=== PATIENT | female | born 1970 | race Asian ===

== ENCOUNTER 2021-08-01 06:54 | Outpatient (REF) | payer OTHER, SELFPAY ==
--- NOTE | ~2021-08-01 | XR_ITS ---
EXAMINATION: XR CHEST CLINICAL INFORMATION: Dyspnea COMPARISON: None TECHNIQUE: 2 views of the chest were obtained. FINDINGS: No focal consolidation, pleural effusion or pneumothorax. 1.5 cm symmetric rounded radiopacities project over the lower lung lara and breasts consistent with nipple shadows. Heart size is normal. No acute osseous abnormality. XR/XR chest 2V IMPRESSION: No acute pulmonary process.
[2021-08-01 07:47] LABS: MANUAL DIFF FLAG NO
[2021-08-01 07:54] LABS: Basophils Percent Auto 0.7 % (0-2); Eosinophils Absolute Auto 0.1 X10*3/uL (0.0-0.4); Eosinophils Percent Auto 1.5 % (0-4); Hematocrit 34.9 % (37-47); Hemoglobin 10.4 g/dl (12.0-16.0); Imm Gran Abs Auto 0.01 X10*3/uL (0.00-0.03); Imm Gran Pct Auto 0.2 % (0.0-0.4); Lymphocytes Absolute Auto 1.5 X10*3/uL (1.2-4.9); Lymphocytes Percent Auto 31.9 % (20-40); Mean Corpuscular HGB Conc 29.8 g/dl (31.0-35.0); Mean Corpuscular Hemoglobin 23.2 pg (27.0-33.0); Mean Corpuscular Volume 77.7 fL (80-98); Mean Platelet Volume 10.2 fL (9.4-12.3); Monocytes Absolute Auto 0.5 X10*3/uL (0.1-1.2); Monocytes Percent Auto 9.9 % (2-11); Neutrophils Absolute Auto 2.5 X10*3/uL (2.0-8.3); Neutrophils Percent Auto 55.8 % (45-73); Platelet Count 316 X10*3/uL (160-400); Red Blood Count 4.49 X10*6/uL (4.20-5.50); Red Cell Distribution Width 15.1 % (11.0-16.0); White Blood Count 4.6 X10*3/uL (4.8-10.8)
[2021-08-01 08:18] LABS: Alanine Aminotransferase 28 U/L (0-31); Albumin Level 4.5 g/dL (3.5-5.0); Alkaline Phosphatase 80 U/L (39-117); Anion Gap 11 (12-20); Aspartate Amino Transferase 21 U/L (5-31); Bilirubin Total 0.5 mg/dL (0.0-1.0); Blood Urea Nitrogen 11 mg/dL (9-16); Calcium 9.5 mg/dL (8.4-10.2); Carbon Dioxide 27 mmol/L (22-29); Chloride 106 mmol/L (96-108); Cholesterol 191 mg/dL; Estimated Glomerular Filt Rate > 60; Glucose Fasting 99 mg/dL (60-99); HDL Cholesterol 58 mg/dL; LDL Cholesterol Calculated 113 mg/dl; Sodium 140 mmol/L (135-145); Total Protein 7.3 g/dL (6.5-8.0); Triglycerides 104 mg/dL
[2021-08-01 08:41] LABS: TSH reflex Free T4 3.59 uIU/mL (0.32-4.0); Vitamin D 25-OH Total 22.2 ng/mL (>30)
[2021-08-01 08:52] LABS: Appearance Urine CLEAR; Color Urine YELLOW; Glucose Urine UA NEG (NEG); Leukocyte Esterase Urine NEG (NEG); Nitrite Urine NEG (NEG); PH 5.5 (5.0-8.0); Specific Gravity - Urine >= 1.030 (1.005-1.025); Urine Blood NEG (NEG); Urine Ketones NEG (NEG); Urine Protein TRACE MG/DL (NEG-TRACE)
== END 2021-08-01 06:55 | disposition home or self-care (01) ==
LOC: HO.XRAY 06:54
PROVIDERS: PCP Internal Medicine; Visit Provider Internal Medicine
DX: Z00.00 Encounter for general adult medical examination without abnormal findings (principal); R06.00 Dyspnea, unspecified; E55.9 Vitamin D deficiency, unspecified
CPT/HCPCS: 36415; 71046; 80053; 80061; 81003; 82306; 84443; 85025

== ENCOUNTER → 2021-09-08 12:44 | Outpatient (BNVA) | payer OTHER, SELFPAY | PROVIDERS: Visit Provider Advanced Practice Midwife ==

== ENCOUNTER 2021-10-16 15:15 | Outpatient (REF) | payer OTHER, SELFPAY ==
--- NOTE | ~2021-10-16 | MM_ITS ---
EXAMINATION: MM SCREENING DIGITAL BREAST TOMOSYNTHESIS, BILATERAL CLINICAL INFORMATION: Screening. Asymptomatic. The lifetime risk of breast cancer based on the Tyrer-Cuzick Model is 5.8%. COMPARISON: Mammography: June 06, 2016 TECHNIQUE: Digital breast tomosynthesis is performed in both the craniocaudal and mediolateral oblique views along with computer-aided detection (CAD). Synthesized 2D images are generated from the tomosynthesis. FINDINGS: The breasts are extremely dense, which lowers the sensitivity of mammography (ACR BI-RADS breast composition Category d). There are no significant masses, abnormal calcifications, or other abnormalities. There are some stable or smaller circumscribed densities present. MM/MM tomosynthesis screening BI IMPRESSION: There are no significant changes from prior study. ASSESSMENT: BI-RADS 1: Negative RECOMMENDATION: Routine annual mammography screening. This patient's information was entered into a reminder system with a target due date for their next mammogram.
== END 2021-10-16 15:16 | disposition home or self-care (01) ==
LOC: HO.MAMMO 15:15
PROVIDERS: Visit Provider Internal Medicine
DX: Z12.31 Encounter for screening mammogram for malignant neoplasm of breast (principal)
CPT/HCPCS: 77063; 77067

== ENCOUNTER 2022-08-01 09:33 | Outpatient (REF) | payer OTHER, SELFPAY ==
--- NOTE | ~2022-08-01 | XR_ITS ---
EXAMINATION: XR HAND, LEFT XR HAND, RIGHT CLINICAL INFORMATION: Pain COMPARISON: None TECHNIQUE: 3 views of each hand FINDINGS: Right hand: No fracture or dislocation. Alignment is maintained. Joint spaces are maintained. No osseous erosion. The soft tissues are unremarkable. Left hand: No fracture or dislocation. Alignment is maintained. Joint spaces are maintained. No osseous erosion. The soft tissues are unremarkable. XR/XR hand RT min 3V IMPRESSION: Normal appearance of both hands.
--- NOTE | ~2022-08-01 | XR_ITS ---
EXAMINATION: XR HAND, LEFT XR HAND, RIGHT CLINICAL INFORMATION: Pain COMPARISON: None TECHNIQUE: 3 views of each hand FINDINGS: Right hand: No fracture or dislocation. Alignment is maintained. Joint spaces are maintained. No osseous erosion. The soft tissues are unremarkable. Left hand: No fracture or dislocation. Alignment is maintained. Joint spaces are maintained. No osseous erosion. The soft tissues are unremarkable. XR/XR hand LT min 3V IMPRESSION: Normal appearance of both hands.
[2022-08-01 09:45] LABS: MANUAL DIFF FLAG NO
[2022-08-01 10:18] LABS: Basophils Percent Auto 0.6 % (0-2); Eosinophils Absolute Auto 0.1 X10*3/uL (0.0-0.4); Eosinophils Percent Auto 1.3 % (0-4); Hematocrit 44.3 % (37.0-47.0); Hemoglobin 14.3 g/dl (12.0-16.0); Imm Gran Abs Auto 0.01 X10*3/uL (0.00-0.03); Imm Gran Pct Auto 0.2 % (0.0-0.4); Lymphocytes Absolute Auto 1.5 X10*3/uL (1.2-4.9); Mean Corpuscular HGB Conc 32.3 g/dl (31.0-35.0); Mean Corpuscular Hemoglobin 28.5 pg (27.0-33.0); Mean Corpuscular Volume 88.4 fL (80.0-98.0); Mean Platelet Volume 9.6 fL (9.4-12.3); Monocytes Absolute Auto 0.4 X10*3/uL (0.1-1.2); Monocytes Percent Auto 8.4 % (2-11); Neutrophils Absolute Auto 2.8 x10*3/uL (2.0-8.3); Neutrophils Percent Auto 58.5 % (45-73); Platelet Count 247 X10*3/uL (160-400); Red Blood Count 5.01 X10*6/uL (4.20-5.50); Red Cell Distribution Width 12.5 % (11.0-16.0); White Blood Count 4.7 X10*3/uL (4.8-10.8)
[2022-08-01 10:38] LABS: Appearance Urine Clear; Color Urine Yellow; Glucose Urine UA Negative (Negative); Leukocyte Esterase Urine Negative (Negative); Nitrite Urine Negative (Negative); Urine Blood Negative (Negative); Urine Ketones Negative (Negative); Urine Protein Negative (Neg-Trace)
[2022-08-01 11:01] LABS: Alanine Aminotransferase 44 U/L (0-31); Albumin Level 4.5 g/dL (3.5-5.0); Alkaline Phosphatase 102 U/L (39-117); Anion Gap 16 (12-20); Aspartate Amino Transferase 29 U/L (5-31); Bilirubin Total 0.8 mg/dL (0.0-1.0); Blood Urea Nitrogen 11 mg/dL (9-16); Calcium 9.5 mg/dL (8.4-10.2); Carbon Dioxide 25 mmol/L (22-29); Chloride 104 mmol/L (96-108); Cholesterol 196 mg/dL; Estimated Glomerular Filt Rate > 60; Glucose Fasting 95 mg/dL (60-99); HDL Cholesterol 50 mg/dL; Iron 119 mcg/dL (30-160); LDL Cholesterol Calculated 122 mg/dl; Percent Iron Saturation 34 % (15-50); Potassium 4.2 mmol/L (3.3-5.1); Sodium 141 mmol/L (135-145); Total Iron Binding Capacity 354 mcg/dL (228-428); Total Protein 7.2 g/dL (6.5-8.0); Triglycerides 120 mg/dL; Unsaturated Iron Binding 235 ug/dL
[2022-08-01 11:09] LABS: TSH reflex Free T4 1.81 uIU/mL (0.32-4.0); Vitamin D 25-OH Total 27.7 ng/mL (>30)
== END 2022-08-01 09:34 | disposition home or self-care (01) ==
LOC: HO.LAB 09:33
PROVIDERS: PCP Internal Medicine; Visit Provider Internal Medicine
DX: Z00.00 Encounter for general adult medical examination without abnormal findings (principal); D50.9 Iron deficiency anemia, unspecified; R30.0 Dysuria; E55.9 Vitamin D deficiency, unspecified; E78.00 Pure hypercholesterolemia, unspecified; M79.641 Pain in right hand; M79.642 Pain in left hand
CPT/HCPCS: 36415; 73130; 80053; 80061; 81003; 82306; 83540; 84443; 85025

== ENCOUNTER 2022-09-10 13:56 | Outpatient (REF) | payer OTHER, SELFPAY ==
[2022-09-13 07:31] LABS: HPV mRNA E6/E7 rflx Not Detected (Not Detected)
== END 2022-09-10 13:57 | disposition home or self-care (01) ==
LOC: HO.LNP 13:56
PROVIDERS: Visit Provider Advanced Practice Midwife
DX: Z01.419 Encounter for gynecological examination (general) (routine) without abnormal findings (principal); Z11.51 Encounter for screening for human papillomavirus (HPV)
CPT/HCPCS: 87624; 88142

== ENCOUNTER 2022-10-22 15:05 | Outpatient (REF) | payer OTHER, SELFPAY ==
--- NOTE | ~2022-10-22 | MM_ITS ---
EXAMINATION: MM SCREENING DIGITAL BREAST TOMOSYNTHESIS, BILATERAL CLINICAL INFORMATION: Screening. Asymptomatic. Prior ultrasound-guided left breast biopsy 1:00 position, 2014 (fibroadenoma, [facility]). The lifetime risk of breast cancer based on the Tyrer-Cuzick Model is 8%. COMPARISON: Mammography: 10/16/2021; outside imaging [facility]: Mammography 12/12/2016, 06/06/2016, 04/12/2015; left breast ultrasound 06/22/2016, 12/12/2016. TECHNIQUE: Digital breast tomosynthesis is performed in both the craniocaudal and mediolateral oblique views along with computer-aided detection (CAD). Synthesized 2D images are generated from the tomosynthesis. FINDINGS: The breasts are extremely dense, which lowers the sensitivity of mammography (ACR BI-RADS breast composition Category d). Left breast appears similar to prior study. Mass noted upper outer quadrant 2015 is not clearly identified in there is no biopsy clip marker. No architectural abnormality. Neither breast shows abnormal calcifications. The bilateral axilla and skin contours are unremarkable. Right MLO tomography shows some converging lines upper quadrant mid jovanny stack, 4.5 cm from nipple. No CC correlate. Patient will be recalled to further characterize and exclude architectural changes in this area. MM/MM tomosynthesis screening BI IMPRESSION: Right: -Question converging lines mid upper right breast on MLO tomography. No CC correlate. Left: -No mammographic evidence of malignancy. ASSESSMENT: BI-RADS 0: Incomplete - Need Additional Imaging Evaluation RECOMMENDATION: 1. Additional views of the right breast (spot MLO, spot ML). 2. Targeted ultrasound if warranted after review of the additional views. 3. Radiology department staff will contact the patient for additional imaging. This patient's information was entered into a reminder system with a target due date for their next mammogram.
== END 2022-10-22 15:06 | disposition home or self-care (01) ==
LOC: HO.MAMMO 15:05
PROVIDERS: PCP Internal Medicine; Visit Provider Advanced Practice Midwife
DX: Z12.31 Encounter for screening mammogram for malignant neoplasm of breast (principal)
CPT/HCPCS: 77063; 77067

== ENCOUNTER 2022-10-30 08:18 | Outpatient (REF) | payer OTHER, SELFPAY ==
--- NOTE | ~2022-10-30 | US_ITS ---
EXAMINATION: MM DIAGNOSTIC DIGITAL BREAST TOMOSYNTHESIS, RIGHT TARGETED RIGHT BREAST ULTRASOUND CLINICAL INFORMATION: Right breast converging lines. COMPARISON: Mammography: 10/22/2022 and studies dating back to 01/23/2011. TECHNIQUE: Digital breast tomosynthesis is performed. 2D images are generated from the tomosynthesis. The following views are obtained: 90-degree mediolateral and mediolateral oblique spot compression views. Targeted right breast ultrasound. FINDINGS: The breasts are extremely dense, which lowers the sensitivity of mammography (ACR BI-RADS breast composition Category d). Additional views demonstrate a question appearance of asymmetric density approximately 4 cm from the nipple. This lies in the superior breast. This does not have a dense central aspect but appears to have some radiating lines associated with it. Targeted right breast ultrasound demonstrate an approximately 5 x 3 mm hypoechoic structure with some increased through-sound transmission at the 12 o'clock position. No internal vascularity is present. The region is taller than it is wide. Ultrasound-guided core biopsy is recommended with correlation of clip site with mammographic finding. Results are discussed with the patient at time of visit. US/US breast RT limited IMPRESSION: Question faint region of asymmetric density in the very dense breast tissue superior right breast with what may be a corresponding ultrasound findings of a shadowing region on ultrasound. Recommend ultrasound-guided core biopsy. ASSESSMENT: BI-RADS 4: Suspicious. RECOMMENDATION: Ultrasound-guided core biopsy. 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
== END 2022-10-30 08:19 | disposition home or self-care (01) ==
LOC: HO.MAMMO 08:18
PROVIDERS: PCP Internal Medicine; Visit Provider Internal Medicine
DX: R92.2 Inconclusive mammogram (principal)
CPT/HCPCS: 76642; 77061; 77065

== ENCOUNTER 2022-11-01 08:52 | Outpatient (REF) | payer OTHER, SELFPAY ==
--- NOTE | ~2022-11-01 | MM_ITS ---
PROCEDURE: US GUIDED BREAST BIOPSY, RIGHT Post procedure 2 view right mammography. CLINICAL INFORMATION: Hypoechoic ill-defined region with distal sound shadowing 12:00 position 2 cm from nipple right breast. COMPARISON: October 30, 2022 and October 22, 2022 PROCEDURAL DETAILS: The details of the procedure, as well as the risks, benefits, and alternatives to the procedure were explained to the patient in detail and all of her questions were answered, after which written informed consent was obtained. Site and side were confirmed. Prior to the procedure, sonography revealed an ill-defined hypoechoic lesion with distal sound shadowing. A time-out was performed, the lesion intended for biopsy was targeted, and the skin of the right breast was then prepped and draped in the usual sterile fashion. Using sonographic guidance, sterile technique, and 1% lidocaine without epinephrine for local anesthesia, multiple automated core biopsies were obtained through the targeted area with a 14G spring loaded Achieve core biopsy device. There was real-time confirmation of appropriate needle passage. Sampling was documented. At the completion of tissue sampling, a single open coil metallic clip was deposited at the biopsy site. There was no evidence of immediate complication. SPECIMEN: An appropriate sample was obtained. DIGITAL POST-PROCEDURE MAMMOGRAPHY: Breast density: The tissue contains scattered areas of fibroglandular density. BI-RADS version 5, category B. There are no new mammographic findings demonstrated. The postprocedure 2-view direct digital mammogram reveals satisfactory positioning of the biopsy clip. The patient tolerated the procedure well and, after assuring adequate hemostasis, was discharged in good condition after reviewing postbiopsy breast care instructions. Final pathology results are pending. MM/MM tomosynthesis diagnostic RT IMPRESSION: 1. No immediate complication from ultrasound-guided percutaneous biopsy right breast. 2. Ultrasound was used to localize and guide marker clip placement. 3. The 2-view direct digital postprocedure mammogram reveals satisfactory positioning of the biopsy clip. 4. Final pathology results are pending. A separate report with final recommendations will be issued once these results are made available.
[2022-11-01] MEDS: Lidocaine HCl 1 % 20 ML VIAL 10 ML SUBCUT (10:48)
== END 2022-11-01 08:53 | disposition home or self-care (01) ==
LOC: HO.MAMMO 08:52
PROVIDERS: PCP Internal Medicine; Visit Provider Surgery
DX: R92.8 Other abnormal and inconclusive findings on diagnostic imaging of breast (principal)
CPT/HCPCS: 19083; 77061; 77065; 88305; 99202; A4648

== ENCOUNTER → 2022-11-09 09:00 | Outpatient (BNVA) | payer OTHER, SELFPAY | PROVIDERS: PCP Internal Medicine; Visit Provider Surgery | DX: R92.8 Other abnormal and inconclusive findings on diagnostic imaging of breast (principal) | CPT/HCPCS: 99212 ==

== ENCOUNTER 2023-04-12 08:57 | Outpatient (REF) | payer OTHER, SELFPAY ==
--- NOTE | ~2023-04-12 | MM_ITS ---
EXAMINATION: MM DIAGNOSTIC DIGITAL BREAST TOMOSYNTHESIS, RIGHT CLINICAL INFORMATION: Short interval follow-up ultrasound guided right breast biopsy 11/01/2022 performed for architectural changes (dense stromal fibrosis; negative for atypia or malignancy). TC score 8%. COMPARISON: Mammography: 11/01/2022, 10/30/2022, 10/22/2022, 10/17/2021 TECHNIQUE: Digital breast tomosynthesis is performed in both the craniocaudal and mediolateral oblique views along with computer-aided detection (CAD). Synthesized 2D images are generated from the tomosynthesis. FINDINGS: The breasts are extremely dense, which lowers the sensitivity of mammography (ACR BI-RADS breast composition Category d). Architectural changes 12:00 right breast are similar to prior exams. The biopsy clip marker is immediately adjacent to the epicenter. There is no interval mass or interval architectural abnormality or abnormal calcifications. The axilla and skin contours are unremarkable. Results are provided to the patient at time of visit by the technologist. MM/MM tomosynthesis diagnostic RT IMPRESSION: No significant changes from prior exam. ASSESSMENT: BI-RADS 3: Probably Benign RECOMMENDATIONS: -Diagnostic mammography at time of annual bilateral mammography, due in 6 months. -Given the extremely dense breast parenchymal pattern on mammography and right stromal fibrosis, suggest additional adjunct screening with breast MR. This patient's information was entered into a reminder system with a target due date for their next mammogram.
== END 2023-04-12 08:58 | disposition home or self-care (01) ==
LOC: HO.MAMMO 08:57
PROVIDERS: PCP Internal Medicine; Visit Provider Advanced Practice Midwife
DX: Z98.890 Other specified postprocedural states (principal)
CPT/HCPCS: 77061; 77065

== ENCOUNTER 2023-08-06 12:59 | Outpatient (AMB) | payer OTHER, SELFPAY ==
[2023-08-06 13:01] VITALS: BP 110/78; PULSE 82; O2SAT 96; BMI 22.2
--- NOTE | 2023-08-06 13:01 | A.OFFPC_ITS ---
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 Required: No Accompanied by: Self / Same As Patient Allergies No Known Allergies Allergy (Verified 08/06/23 13:23) Medication List - Last Reconciled 08/06/23 by John Lilly MD mometasone 0.1% 1 appl topical DAILY PRN Tobacco use date assessed: 08/06/23 Dental Screening Dental Screen Date: 08/06/23 Did you have a dental visit in the last 12 months?: No Did you have a dental problem in the last 6 months where you did not have access to dental care?: No Was dental information given to patient?: No HPI Annual Exam- NEEDS PHQ9 + THRIVE HPI Details Patient comes in today for her annual physical examination States that she feels okay She denies any headaches or dizziness Denies any chest pains, no SOB No nausea/vomiting, no abdominal pain No change in bowel habits noted Denies any acute urinary symptoms She had her screening colonoscopy done with Dr. Jamison back on 01/13/2019 - (+) hyperplastic polyps and she was recommended for repeat colonoscopy in 10 years (2028) Had her pap smear last done in September 2022 and she is scheduled for her next obstetrics gynecology physician exam on 09/16/2023 Had her mammogram last done in April 2023; is due for repeat and annual in 6 months [facility] Medical History Allergic rhinitis GERD without esophagitis Elevated liver enzymes Vitamin D deficiency Breast lump in upper outer quadrant Fibroadenoma Surgical History S/P breast biopsy, left (~05/12/15) H/O removal of cyst Family History Father No problems noted. Mother No problems noted. Social History Housing: House Alcohol intake: never Patient Tobacco Use Status: Never used Tobacco Second Hand Smoke Exposure: No service: No Current occupational status: employed Cognitive needs: No Hearing needs: No Vision needs: No Female Reproductive History Menstrual Age of Menarche: 15 Questionnaire PHQ-9 Over the last 2 weeks, how often have you been bothered by any of the following problems? 1. Little interest or pleasure in doing things: not at all 2. Feeling down, depressed, or hopeless: not at all 3. Trouble falling or staying asleep, or sleeping too much: not at all 4. Feeling tired or having little energy: not at all 5. Poor appetite or overeating: not at all 6. Feeling bad about yourself - or that you are a failure or have let yourself or your family down: not at all 7. Trouble concentrating on things, such as reading the newspaper or watching television: not at all 8. Moving or speaking so slowly that other people could have noticed. Or the opposite - being so fidgety or restless that you have been moving around a lot more than usual: not at all 9. Thoughts that you would be better off or of hurting yourself in some way: not at all Total score: 0 Depression Screening Interpretation: Negative Depression Screening Done: Yes Source: Developed by Drs. Hai Marcum, Unique Adam, Erick ugarte nd colleagues, with an educational tg from [employer]. Thrive Questionnaire Date Thrive assessed: 08/06/23 I am a: Patient What is your living situation today?: I have a steady place to live Within the past 12 months, did the food you bought not last and you didn't have the money to get more?: Never true Within the past 12 months, did you worry whether your food would run out before you got money to buy more?: Never true Do you have trouble paying for medicines?: No Do you have trouble getting transportation to medical appointments?: No Do you have trouble paying your heating and electricity bill?: No Do you have trouble taking care of your child, family member or friend?: No Do you have trouble with day-to-day activities such as bathing, preparing meals, shopping, managing finances, etc.?: No Are you currently unemployed and looking for a job?: No Are you interested in more education?: No Please select the resources that you would like help with: None Currently or been in a relationship where the following occur: no concerns reported AUDIT C Alcohol Use Questionnaire (AUDIT-C) 1. How often do you have a drink containing alcohol?: Never 3. How often do you have six or more drinks on one occasion?: Never Total Score: 0 Score Reviewed/Action Taken: Yes YOVANA-7 AMB Questionnaire YOVANA-7 Date YOVANA - 7 assessed: 08/06/23 Feeling nervous, anxious, or on edge: 0 = Not at all Not being able to stop or control worryin = Not at all Worrying too much about different things: 0 = Not at all Trouble relaxin = Not at all Being so restless that it is hard to sit still: 0 = Not at all Becoming easily annoyed or irritable: 0 = Not at all Feeling afraid as if something awful might happen: 0 = Not at all Total YOVANA-7 score (0-4 normal; 5-9 mild; 10-14 moderate; 15-21 severe): 0 Source: Developed by Drs. Hai Marcum, Unique Adam, Erick Horner and colleagues, with an educational tg from [employer]. Review of Systems Const Denies chills, Denies fatigue, Denies fever(s), Denies headache(s) and Denies malaise Eyes Denies blurry vision, Denies change in vision, Denies irritation and Denies itchy eyes ENT Denies dysphagia, Denies dizziness, Denies otalgia, Denies headache(s), Denies nasal congestion, Denies neck pain, Denies odynophagia, Denies sinus pain and Denies sore throat Card Denies chest pain, Denies rapid heart rate, Denies irregular heart rhythm, Denies palpitations and Denies dyspnea Resp Denies chest congestion, Denies cough, Denies dyspnea and Denies wheezing GI Denies abdominal pain, Denies bloating, Denies constipation, Denies dysphagia, Denies heartburn, Denies diarrhea, Denies nausea, Denies odynophagia and Denies vomiting Denies hematuria, Denies urinary frequency, Denies dysuria, Denies urinary incontinence and Denies urinary urgency Musc Denies back pain, Denies arthralgias, Denies joint swelling, Denies muscle weakness and Denies neck pain Skin/Breast Denies breast pain, Denies breast mass, Denies change in pigmentation, Denies lesions, Reports rash (on and off) and Denies unusual bruising Neuro Denies dizziness, Denies headache(s) and Denies paresthesias Psych Denies anxiety and Denies depression Endo Denies fatigue and Denies palpitations Benson/Lymph Denies easy bruising Aller/Immun Denies itchy eyes and Denies wheezing Physical exam (Primary Care) Vital Signs: Last Vital Signs Pulse 82 08/06/23 13:01 BP 110/78 08/06/23 13:01 Pulse Ox 96 08/06/23 13:01 Oxygen Delivery Method Room Air 08/06/23 13:01 BMI result Body Mass Index 22.2 Tobacco/Smoking Status: Tobacco use Status Tobacco use date assessed 08/06/23 08/06/23 13:09 Patient Tobacco Use Status Never used Tobacco 08/06/23 13:09 PHQ-9: PHQ-9 Score PHQ-9: Total score 0 08/06/23 13:25 Depression Screening Interpretation: Negative Thrive Assessment: Date of Thrive Assessment Date Thrive assessed 08/06/23 08/06/23 13:09 Currently or been in a relationship where the following occur: no concerns reported Const General: no acute distress, alert and awake Orientation/consciousness: patient oriented x3 HENMT Head: Yes normocephalic and Yes atraumatic Ears: external ears normal, TM's normal bilaterally and EAC's normal General nose exam: No nasal discharge present Face and sinus: Yes normal facial exam and Yes sinuses nontender Teeth and gingiva: dentition normal Throat: Yes posterior oropharynx normal and Yes tonsils normal (no TP congestion) Eyes Eyelids: Yes eyelids normal Conjunctivae: conjunctivae normal Pupils: Equal, round and reactive pupils present EOM: EOMs intact bilaterally Neck Neck: Yes no lymphadenopathy and Yes supple Thyroid: Thyroid normal Resp Auscultation: clear to auscultation bilaterally, no rales and no wheezes Cardio Rate: regular rate Rhythm: regular rhythm Heart sounds: no murmurs GI Palpation (GI): Soft to palpation, nontender and No hepatosplenomegaly present Auscultation: normal bowel sounds General: Yes no CVA tenderness Back/Spine/Pelvis Back: no CVA tenderness Thoracic/Lumbar Spine: thoracic and lumbar spine normal to inspection Skin Lesions: no lesions Rashes: no rashes Neuro General: patient oriented x3, moves all extremities, no focal motor deficits and CN's II-XI intact bilaterally Cranial nerves: Yes Equal, round and reactive pupils present Cognition (Neuro): normal cognition Gait exam (Neuro): Normal gait present Extrem General: Yes no clubbing, cyanosis or edema Assessment and Plan Assessment & Plan (1) Annual physical exam: Code(s): Z00.00 - Encounter for general adult medical examination without abnormal findings Plan: Check labs She is up-to-date with her annual pap smear/obstetrics gynecology physician exam (next appt on 09/16/23), mammogram (due for repeat on 10/11/23) and screening colonoscopy (due for repeat in 2028) (2) Elevated liver enzymes: Code(s): R74.8 - Abnormal levels of other serum enzymes Plan: Resolved; her LFTs have been normal on her labs over the past couple of years Will recheck her LFTs for follow up (3) Vitamin D deficiency: Code(s): E55.9 - Vitamin D deficiency, unspecified Plan: Will recheck her Vitamin D level for follow up Admits that she has not been taking any Vitamin D supplements for the past few months now (4) Allergic rhinitis: Code(s): J30.9 - Allergic rhinitis, unspecified Qualifiers: Allergic rhinitis trigger: unspecified Allergic rhinitis seasonality: unspecified Qualified Code(s): J30.9 - Allergic rhinitis, unspecified Plan: Continue OTC Loratadine 10 mg QD PRN (5) Pruritus: Code(s): L29.9 - Pruritus, unspecified Plan: May be due to dry skin but also due to allergies Have again advised that OTC Loratadine 10 mg QD can help with her itching symptoms Per request, will refill her Betamethasone dipropionate 0.05% QD PRN (was last refilled back in 2019) (6) Anemia: Code(s): D64.9 - Anemia, unspecified Qualifiers: Anemia type: unspecified type Qualified Code(s): D64.9 - Anemia, unspecified Plan: Will recheck CBC for follow up Colonoscopy done in January 2019 came out normal - due for repeat in 10 years (7) Bilateral hand pain: Code(s): M79.641 - Pain in right hand; M79.642 - Pain in left hand Plan: Advised again that her hand symptoms may be due to tendinitis or early arthritis X-rays of both hands done last year came out normal Plan To return in 1 year for her next annual physical examination Orders: Orders Complete Blood Count Auto Diff Today D64.9 - Anemia, unspecified, M79.641 - Pain in right hand, M79.642 - Pain in left hand, R74.8 - Abnormal levels of other serum enzymes, Z00.00 - Encounter for general adult medical examination without abnormal findings Lipid Panel Today D64.9 - Anemia, unspecified, E78.00 - Pure hypercholesterolemia, unspecified, M79.641 - Pain in right hand, M79.642 - Pain in left hand, R74.8 - Abnormal levels of other serum enzymes, Z00.00 - Encounter for general adult medical examination without abnormal findings Erythrocyte Sedimentation Rate Today M79.641 - Pain in right hand, M79.642 - Pain in left hand Comprehensive [place]. Panel Fast Today D64.9 - Anemia, unspecified, E78.00 - Pure hypercholesterolemia, unspecified, M79.641 - Pain in right hand, M79.642 - Pain in left hand, R74.8 - Abnormal levels of other serum enzymes, Z00.00 - Encounter for general adult medical examination without abnormal findings TSH reflex Free T4 Today D64.9 - Anemia, unspecified, E78.00 - Pure hypercholesterolemia, unspecified, M79.641 - Pain in right hand, M79.642 - Pain in left hand, R74.8 - Abnormal levels of other serum enzymes, Z00.00 - Encounter for general adult medical examination without abnormal findings UA CC w/rflx Micro + Cult Today D64.9 - Anemia, unspecified, M79.641 - Pain in right hand, M79.642 - Pain in left hand, R30.0 - Dysuria, R74.8 - Abnormal levels of other serum enzymes, Z00.00 - Encounter for general adult medical examination without abnormal findings Vitamin D 25-OH Total Today D64.9 - Anemia, unspecified, E55.9 - Vitamin D deficiency, unspecified, M79.641 - Pain in right hand, M79.642 - Pain in left hand, R74.8 - Abnormal levels of other serum enzymes, Z00.00 - Encounter for general adult medical examination without abnormal findings Medications: New betamethasone dipropionate 0.05% 1 appl topical DAILY PRN 45 grams 1RF skin irritation/rash Coding Level of Care Code Est Pt Prev Care 40-64y([id number]) Diagnoses Annual physical exam Z00.00 Elevated liver enzymes R74.8 Vitamin D deficiency E55.9 Allergic rhinitis, unspecified seasonality, unspecified trigger J30.9 Allergic rhinitis trigger: unspecified Allergic rhinitis seasonality: unspecified Pruritus L29.9 Anemia, unspecified type D64.9 Anemia type: unspecified type Bilateral hand pain M79.641; M79.642 Additional Codes PHQ-9 - 92827 - PHQ-9 Billing: ([id number])
== END 2023-08-06 13:41 | disposition home or self-care (01) ==
PROVIDERS: Visit Provider Internal Medicine
DX: Z00.00 Encounter for general adult medical examination without abnormal findings (principal); E55.9 Vitamin D deficiency, unspecified; J30.9 Allergic rhinitis, unspecified; L29.9 Pruritus, unspecified; D64.9 Anemia, unspecified; M79.641 Pain in right hand; M79.642 Pain in left hand
CPT/HCPCS: 99396

== ENCOUNTER 2023-08-07 08:41 | Outpatient (REF) | payer OTHER, SELFPAY ==
[2023-08-07 09:26] LABS: MANUAL DIFF FLAG NO
[2023-08-07 09:36] LABS: Basophils Percent Auto 0.5 % (0-2); Eosinophils Absolute Auto 0.1 X10*3/uL (0.0-0.4); Eosinophils Percent Auto 1.8 % (0-4); Hematocrit 44.9 % (37.0-47.0); Hemoglobin 14.9 g/dl (12.0-16.0); Imm Gran Abs Auto 0.01 X10*3/uL (0.00-0.03); Imm Gran Pct Auto 0.2 % (0.0-0.4); Lymphocytes Absolute Auto 1.3 X10*3/uL (1.2-4.9); Lymphocytes Percent Auto 29.5 % (20-40); Mean Corpuscular HGB Conc 33.2 g/dl (31.0-35.0); Mean Corpuscular Hemoglobin 29.8 pg (27.0-33.0); Mean Corpuscular Volume 89.8 fL (80.0-98.0); Mean Platelet Volume 9.5 fL (9.4-12.3); Monocytes Absolute Auto 0.4 X10*3/uL (0.1-1.2); Monocytes Percent Auto 9.1 % (2-11); Neutrophils Absolute Auto 2.6 x10*3/uL (2.0-8.3); Neutrophils Percent Auto 58.9 % (45-73); Platelet Count 237 X10*3/uL (160-400); Red Cell Distribution Width 11.6 % (11.0-16.0); White Blood Count 4.4 X10*3/uL (4.8-10.8)
[2023-08-07 10:05] LABS: Alanine Aminotransferase 59 U/L (0-31); Albumin Level 4.6 g/dL (3.5-5.0); Alkaline Phosphatase 114 U/L (39-117); Anion Gap 13 (12-20); Aspartate Amino Transferase 31 U/L (5-31); Bilirubin Total 0.5 mg/dL (0.0-1.0); Blood Urea Nitrogen 9 mg/dL (9-16); Calcium 10.3 mg/dL (8.4-10.2); Carbon Dioxide 27 mmol/L (22-29); Chloride 105 mmol/L (96-108); Cholesterol 219 mg/dL (<200); Estimated Glomerular Filt Rate > 60; Glucose Fasting 102 mg/dL (60-99); HDL Cholesterol 58 mg/dL (>40); LDL Cholesterol Calculated 132 mg/dL (<100); Potassium 4.1 mmol/L (3.3-5.1); Sodium 141 mmol/L (135-145); Total Protein 7.8 g/dL (6.5-8.0); Triglycerides 148 mg/dL (<150)
[2023-08-07 10:16] LABS: Erythrocyte Sedimentation Rate 10 MM/HR (0-20)
[2023-08-07 10:24] LABS: TSH reflex Free T4 1.93 uIU/mL (0.32-4.0); Vitamin D 25-OH Total 25.6 ng/mL (>30)
[2023-08-07 11:40] LABS: Appearance Urine Clear; Color Urine Yellow; Glucose Urine UA Negative (Negative); Leukocyte Esterase Urine Negative (Negative); Nitrite Urine Negative (Negative); Specific Gravity - Urine 1.015 (1.005-1.025); Urine Blood Negative (Negative); Urine Ketones Negative (Negative); Urine Protein Negative (Neg-Trace)
== END 2023-08-07 08:42 | disposition home or self-care (01) ==
LOC: HO.LAB 08:41
PROVIDERS: PCP Internal Medicine; Visit Provider Internal Medicine
DX: Z00.00 Encounter for general adult medical examination without abnormal findings (principal); M79.641 Pain in right hand; M79.642 Pain in left hand; D64.9 Anemia, unspecified; R74.8 Abnormal levels of other serum enzymes; E78.00 Pure hypercholesterolemia, unspecified; R30.0 Dysuria; E55.9 Vitamin D deficiency, unspecified
CPT/HCPCS: 36415; 80053; 80061; 81003; 82306; 84443; 85025; 85652

== ENCOUNTER 2023-09-16 12:54 | Outpatient (REF) | payer OTHER, SELFPAY ==
[2023-09-17 10:10] LABS: BV Int Neg Control Negative (Negative); BV Int Pos Control Positive (Positive)
[2023-09-17 10:57] LABS: CT PCR NOT DETECTED (Not Detect.); NG PCR NOT DETECTED (Not Detect.)
[2023-09-21 08:52] LABS: HPV mRNA E6/E7 rflx Not Detected (Not Detected)
== END 2023-09-16 12:55 | disposition home or self-care (01) ==
LOC: HO.LNP 12:54
PROVIDERS: PCP Internal Medicine; Visit Provider Advanced Practice Midwife
DX: Z01.419 Encounter for gynecological examination (general) (routine) without abnormal findings (principal); Z11.51 Encounter for screening for human papillomavirus (HPV); R87.615 Unsatisfactory cytologic smear of cervix; N95.1 Menopausal and female climacteric states; R92.8 Other abnormal and inconclusive findings on diagnostic imaging of breast; M79.622 Pain in left upper arm
CPT/HCPCS: 0353U; 87480; 87510; 87624; 87660; 88142; 99396

== ENCOUNTER 2023-09-16 12:54 | Outpatient (AMB) | payer OTHER, SELFPAY ==
--- NOTE | 2023-09-16 13:03 | MHC.OFFVIS ---
Intake Vital Signs 09/16/23 13:04 Height 5 ft 4 in Weight 130 lb BMI 22.3 BP 92/60 Intake Visit Reasons: DOMESTIC VIOLENCE ADVOCATE annual exam Security Manager Required: Yes Security Manager [facility] Nigerian Security Manager Name: Reema [id number] Information Interpreted: non-clinical & clinical Professional Development Instructor: Professional Development Instructor Present (Leelee) Allergies No Known Allergies Allergy (Verified 09/16/23 13:04) Medication List - Last Reconciled 09/16/23 by Jessica Uribe CNM betamethasone dipropionate 0.05% 1 appl topical DAILY PRN mometasone 0.1% 1 appl topical DAILY PRN Post menopausal: Yes HPI DOMESTIC VIOLENCE ADVOCATE annual exam HPI Details patient is here for specimen accessioner exam the visit was done in tired early through Mandarin and her bird her using the tablet. The patient says she is fine the only thing she is having some pain in her left axilla. And she thinks that she is getting old she said she did discussed with her primary. It developed through the conversation that she had a problem with the left arm where she could not pull up her pants with that arm awhile ago and she has been doing exercises with her arm moving or arm up the wall and it is getting better. [facility] Medical History Allergic rhinitis GERD without esophagitis Elevated liver enzymes Vitamin D deficiency Breast lump in upper outer quadrant Fibroadenoma Surgical History S/P breast biopsy, left (~05/12/15) H/O removal of cyst Family History Father No problems noted. Mother No problems noted. Social History Housing: House Alcohol intake: never Patient Tobacco Use Status: Never used Tobacco Second Hand Smoke Exposure: No service: No Current occupational status: employed Cognitive needs: No Hearing needs: No Vision needs: No Female Reproductive History Menstrual Age of Menarche: 15 Menopause type: natural Total pregnancies: 4 Full term: 2 Number of Living Children: 2 Ab induced: 2 Date of last pap smear: 11/07/22 (unsat neg hpv) History of abnormal pap smear: No Date of Mammogram: 04/12/23 (Birad 3) Physical Exam Vital Signs: Last Vital Signs BP 92/60 09/16/23 13:04 BMI result Body Mass Index 22.3 Const General: healthy appearing, comfortable, no acute distress, well developed and alert Nutritional Appearance: average body habitus Orientation/consciousness: patient oriented x3 Limitations: no limitations HEENT Head: Yes normocephalic Neck Neck: Yes normal visual inspection Chest Other: Careful exam of both breasts no masses and no masses in axilla patient states that is where her pain is but I cannot feel anything palpable in that area at all Chest palpation & inspection: normal inspection of the chest Breast/axilla inspection: normal inspection of the breasts and normal inspection of the axillae Breast/axilla palpation: normal palpation of the breasts and normal palpation of the axillae Resp Effort & Inspection: normal respiratory effort GI Inspection: Yes normal to inspection, No Abdominal wall edema and No distended Palpation (GI): Soft to palpation and nontender Other: normal specimen accessioner exam tiny pimple consistent with folliculitis that appears ready to pop left labia buttocks cheek vagina pink moist somewhat atrophic cervix multiparous small vagina atrophic uterus small nontender mild tone with Kegel. General: Yes bladder normal to palpation External Female Exam: normal external appearance and normal appearance of the urethra Speculum Exam - Vagina: normal appearance of the vagina, normal palpation and normal vaginal discharge Speculum Exam - Cervix: normal appearance of the cervix, normal palpation and nontender Bimanual exam- vagina & uterus: normal bimanual exam, normal palpation, uterine size normal, bladder normal to palpation, consistency normal, normal palpation, uterine mobility normal, uterine shape normal, No Cervical tenderness present, non-tender and no cervical motion tenderness Bimanual Exam- Adnexa, other: normal adnexae, no masses, normal and No adnexal tenderness Neuro General: patient oriented x3 Results Reviewed Results Reviewed: [facility] [address] [place] [address] [address], [place] [address] Mammography Report Signed Patient: Prakash Keller MR#: [id number] : 1970 Acct:[id number] Age/Sex: 52 / F ADM Date: 04/12/23 Loc: [facility] Attending Dr: Jessica Uribe CNM Ordering Physician: Jessica Uribe CNM Results: 3.6MProbably Benign Finding - Short 6 M F/U Suggested Date of Service: 04/12/23 Follow Up: 6 Month F/U Procedure(s): MM tomosynthesis diagnostic RT Accession Number(s): [id number] cc: Jessica Uribe CNM~ EXAMINATION: MM DIAGNOSTIC DIGITAL BREAST TOMOSYNTHESIS, RIGHT CLINICAL INFORMATION: Short interval follow-up ultrasound guided right breast biopsy 11/01/2022 performed for architectural changes (dense stromal fibrosis; negative for atypia or malignancy). TC score 8%. COMPARISON: Mammography: 11/01/2022, 10/30/2022, 10/22/2022, 10/17/2021 TECHNIQUE: Digital breast tomosynthesis is performed in both the craniocaudal and mediolateral oblique views along with computer-aided detection (CAD). Synthesized 2D images are generated from the tomosynthesis. FINDINGS: The breasts are extremely dense, which lowers the sensitivity of mammography (ACR BI-RADS breast composition Category d). Architectural changes 12:00 right breast are similar to prior exams. The biopsy clip marker is immediately adjacent to the epicenter. There is no interval mass or interval architectural abnormality or abnormal calcifications. The axilla and skin contours are unremarkable. Results are provided to the patient at time of visit by the technologist. MM/MM tomosynthesis diagnostic RT IMPRESSION: No significant changes from prior exam. ASSESSMENT: BI-RADS 3: Probably Benign RECOMMENDATIONS: -Diagnostic mammography at time of annual bilateral mammography, due in 6 months. -Given the extremely dense breast parenchymal pattern on mammography and right stromal fibrosis, suggest additional adjunct screening with breast MR. This patient's information was entered into a reminder system with a target due date for their next mammogram. Dictated By: Horacio Alan MD Signed By: <Electronically signed by Horacio Alan MD in OV> 04/12/23938 DD/ 1 TD/TT: Mellowing Machine Operator: LOW Assessment & Plan Assessment & Plan (1) Abnormal mammogram of right breast: Code(s): R92.8 - Other abnormal and inconclusive findings on diagnostic imaging of breast (2) S/P breast biopsy, left: Onset Date: ~05/12/15 Comment: US-guided core biopsy of left breast - fibroadenoma - done by [facility] Code(s): Z98.890 - Other specified postprocedural states (3) Breast cancer screening: Comment: Has mammogram next month Code(s): Z12.39 - Encounter for other screening for malignant neoplasm of breast (4) Cervical cancer screening: Comment: 09/10/2022 Pap is unsatisfactory ?due to the lubricant? lubricant was not used. HPV is negative will need a repeat. Code(s): Z12.4 - Encounter for screening for malignant neoplasm of cervix (5) Well woman exam with routine gynecological exam: Code(s): Z01.419 - Encounter for gynecological examination (general) (routine) without abnormal findings (6) Left axillary pain: Code(s): M79.622 - Pain in left upper arm (7) Abnormal mammogram: Code(s): R92.8 - Other abnormal and inconclusive findings on diagnostic imaging of breast (8) Perimenopause: Code(s): N95.1 - Menopausal and female climacteric states Plan -----Discussed in this visit the following: healthy balanced diet, regular and consistent exercise, getting recommended health screens, doing the best she can for her particular health concerns, kegel exercises, pap smear screening and followup recommendations, mammography screening and SBE, normal changes in cycles in her life stage--- . think she is doing a very good exercise for her arm. Applauded her for her excellent self-care. I recommend perhaps warm soaks to the pimple on her left labia or else just leave it alone and will pop on its own. Reviewing the chart recommendations from the radiologist in April recommended follow-up diagnostic mammography in 6 months and I did not see the order for that so I placed it she then told me that she does over the has an appointment to repeat that next month. She also had had a biopsy with Dr. Chamberlain last November. Since recommendations also in the mammogram were commenting on perhaps consideration of MRI for evaluation of the breasts I am placing a referral to Dr. Chamberlain for more comprehensive decision making about best screening, evaluation of her breasts. I have placed both in the system. RTC 1 year all of the above was done with Mandarin translation from Reema see medical coordinator pesticide use notes for the number. Orders: Orders Pap Smear Today R87.615 - Unsatisfactory cytologic smear of cervix, Z01.419 - Encounter for gynecological examination (general) (routine) without abnormal findings MM tomosynthesis diagnostic BI Today M79.622 - Pain in left upper arm, R92.8 - Other abnormal and inconclusive findings on diagnostic imaging of breast, Z01.419 - Encounter for gynecological examination (general) (routine) without abnormal findings, Z12.39 - Encounter for other screening for malignant neoplasm of breast, Z12.4 - Encounter for screening for malignant neoplasm of cervix, Z98.890 - Other specified postprocedural states Bacterial Vaginosis Panel Today M79.622 - Pain in left upper arm, R92.8 - Other abnormal and inconclusive findings on diagnostic imaging of breast, Z01.419 - Encounter for gynecological examination (general) (routine) without abnormal findings, Z12.39 - Encounter for other screening for malignant neoplasm of breast, Z12.4 - Encounter for screening for malignant neoplasm of cervix, Z20.2 - Contact with and (suspected) exposure to infections with a predominantly sexual mode of transmission, Z98.890 - Other specified postprocedural states CT NG by PCR Today M79.622 - Pain in left upper arm, R92.8 - Other abnormal and inconclusive findings on diagnostic imaging of breast, Z01.419 - Encounter for gynecological examination (general) (routine) without abnormal findings, Z12.39 - Encounter for other screening for malignant neoplasm of breast, Z12.4 - Encounter for screening for malignant neoplasm of cervix, Z20.2 - Contact with and (suspected) exposure to infections with a predominantly sexual mode of transmission, Z98.890 - Other specified postprocedural states Referrals Breast Surgery Referral M79.622 - Pain in left upper arm, R92.8 - Other abnormal and inconclusive findings on diagnostic imaging of breast Coding Level of Care Code Est Pt Prev Care 40-64y(97449) Diagnoses Abnormal mammogram of right breast R92.8 S/P breast biopsy, left Z98.890 Breast cancer screening Z12.39 Cervical cancer screening Z12.4 Well woman exam with routine gynecological exam Z01. Left axillary pain M79.622 Abnormal mammogram R92.8 Perimenopause N95.1
[2023-09-16 13:04] VITALS: BP 92/60; BMI 22.3
== END 2023-09-16 14:21 | disposition home or self-care (01) ==
LOC: HO.HWS 12:54
PROVIDERS: PCP Internal Medicine; Visit Provider Advanced Practice Midwife
DX: Z01.419 Encounter for gynecological examination (general) (routine) without abnormal findings (principal); R92.8 Other abnormal and inconclusive findings on diagnostic imaging of breast; M79.622 Pain in left upper arm; N95.1 Menopausal and female climacteric states
CPT/HCPCS: 99396

== ENCOUNTER 2023-09-16 13:51 | Outpatient (REF) | payer OTHER, SELFPAY | END 2023-09-16 13:52 | disposition home or self-care (01) | LOC: HO.LAB 13:51 | PROVIDERS: Visit Provider Advanced Practice Midwife | DX: Z13.89 Encounter for screening for other disorder (principal) ==

== ENCOUNTER 2023-10-11 08:41 | Outpatient (REF) | payer OTHER, SELFPAY ==
--- NOTE | ~2023-10-11 | MM_ITS ---
EXAMINATION: MM DIAGNOSTIC DIGITAL BREAST TOMOSYNTHESIS, BILATERAL CLINICAL INFORMATION: Six-month interval follow-up right breast architectural changes 12:00 axis, status post benign biopsy demonstrating no evidence of atypia or malignancy. Patient also due for bilateral screening. COMPARISON: Mammography: 04/12/2023, 11/01/2022, 10/22/2022, 10/16/2021, and dating back to 2016. TECHNIQUE: Digital breast tomosynthesis is performed in both the craniocaudal and mediolateral oblique views along with computer-aided detection (CAD). Synthesized 2D images are generated from the tomosynthesis. In addition, a spot compression right cc view was also obtained. FINDINGS: The breasts are heterogeneously dense, which may obscure small masses (ACR BI-RADS breast composition Category c). There is a biopsy marker in the 12:00 axis of the right breast at site of previous benign biopsy. No persistent focus of architectural distortion is identified on the tomographic views. No masses, suspicious calcifications, or developing areas of architectural distortion in either breast. MM/MM tomosynthesis diagnostic BI IMPRESSION: There are no significant changes from prior study. Previous benign biopsy 12:00 axis. The previously described distortion abutting the biopsy site is not appreciated on today's exam, and has the appearance of superimposition artifact of normal dense fibroglandular tissues. To be cautious, recommend 1 year interval follow-up diagnostic right mammography to include right spot compression view in the CC projection, right spot compression view in the MLO projection, and a full-field right mediolateral view. ASSESSMENT: BI-RADS BI-RADS 3 - Probably benign finding(s) - 12 month follow-up suggested RECOMMENDATION: 12 month diagnostic follow up Results were provided to the patient at time of visit by the technologist. This patient's information was entered into a reminder system with a target due date for their next mammogram.
== END 2023-10-11 08:42 | disposition home or self-care (01) ==
LOC: HO.MAMMO 08:41
PROVIDERS: PCP Internal Medicine; Visit Provider Advanced Practice Midwife
DX: R92.8 Other abnormal and inconclusive findings on diagnostic imaging of breast (principal); Z98.890 Other specified postprocedural states
CPT/HCPCS: 77062; 77066

== ENCOUNTER → 2023-10-11 09:00 | Outpatient (BNV) | payer OTHER, SELFPAY | PROVIDERS: PCP Internal Medicine; Visit Provider Radiology Diagnostic Radiology | DX: R92.8 Other abnormal and inconclusive findings on diagnostic imaging of breast (principal) | CPT/HCPCS: 77062; 77066 ==

== ENCOUNTER 2023-11-27 13:29 | Outpatient (REF) | payer OTHER, SELFPAY ==
[2023-12-07 03:44] LABS: HPV mRNA E6/E7 rflx Not Detected (Not Detected)
== END 2023-11-27 13:30 | disposition home or self-care (01) ==
LOC: HO.LNP 13:29
PROVIDERS: PCP Internal Medicine; Visit Provider Advanced Practice Midwife
DX: R87.615 Unsatisfactory cytologic smear of cervix (principal); N95.1 Menopausal and female climacteric states; Z12.4 Encounter for screening for malignant neoplasm of cervix; Z79.899 Other long term (current) drug therapy
CPT/HCPCS: 87491; 87591; 87624; 87661; 88142; 99212

== ENCOUNTER 2023-11-27 13:29 | Outpatient (AMB) | payer OTHER, SELFPAY ==
[2023-11-27 13:40] VITALS: BP 100/70; BMI 22.3
--- NOTE | 2023-11-27 13:40 | MHC.OFFVIS ---
Intake Vital Signs 11/27/23 13:40 Height 5 ft 4 in Weight 130 lb BMI 22.3 BP 100/70 Intake Visit Reasons: repeat pap Field Hand Required: Yes Field Hand Language: Mandarin Frisian Information Interpreted: non-clinical & clinical Dianeticist: Dianeticist Present (Bryon) Accompanied by: Allergies No Known Allergies Allergy (Verified 11/27/23 13:42) Medication List - Last Reconciled 11/27/23 by Jessica Uribe CNM betamethasone dipropionate 0.05% 1 appl topical DAILY PRN mometasone 0.1% 1 appl topical DAILY PRN Is last menstrual period known: No Post menopausal: Yes HPI repeat pap HPI Details Patient is here for repeat Pap smear. The previous Pap done in the was deemed inadequate because of lubricant. This provider did not use lubricant during the exam. The patient states she has not used any lubricant. [facility] Medical History Allergic rhinitis GERD without esophagitis Elevated liver enzymes Vitamin D deficiency Breast lump in upper outer quadrant Fibroadenoma Surgical History S/P breast biopsy, left (~05/12/15) H/O removal of cyst Family History Father No problems noted. Mother No problems noted. Social History Housing: House Alcohol intake: never Patient Tobacco Use Status: Never used Tobacco Second Hand Smoke Exposure: No service: No Current occupational status: employed Cognitive needs: No Hearing needs: No Vision needs: No Female Reproductive History Menstrual Age of Menarche: 15 control method: none Physical Exam Vital Signs: Last Vital Signs BP 100/70 11/27/23 13:40 BMI result Body Mass Index 22.3 External Female Exam: normal external appearance and normal appearance of the urethra Speculum Exam - Vagina: normal appearance of the vagina and normal vaginal discharge Speculum Exam - Cervix: normal appearance of the cervix and Cervical os closed Results Reviewed Results Reviewed: Name: AriannaPrakash Age/Sex: 53/F Attending: Jessica Uribe CNM : 1970 Submitted by: Jessica Uribe CNM Copies to: John Lilly MD MR #: [id number] Status: DEP REF Collected: 09/16/23 [facility] Received: 09/17/23 Interpretation Unsatisfactory. Obscuring foreign material consistent with lubricant. Scant cellularity. HPV mRNA E6/E7: NOT DETECTED This assay detects E6/E7 viral messenger RNA (mRNA) from 14 high-risk HPV types (16, 18, 31, 33, 35, 39, 45, 51, 52, 56, 58, 59, 66, 68) HPV testing performed by [facility], [place], [place]. See reference laboratory portion of the EMR for entire report. Clinical Information LMP: Menopausal Previous PAP test: 2021, WNL Other history: Unsatisfactory cytologic smear of cervix Material Received ThinPrep-Cervical Copies To John Lilly MD [address] [id number] Jessica Uribe CNM [address] [place] [address] [id number] Electronically Signed By: SUNITHA Herbert (ASCP) 10/03/23 1127 The Pap Test is a screening procedure with the inherent possibility of both false negative and false positive results. Results should be interpreted in the context of historic and current clinical findings. Reliability of the Pap Test is enhanced by performing the test on a regular repetitive basis. Patient: Prakash Keller Age/Sex: 53/F MR#: [id number] Page 1 of 1 Assessment & Plan Assessment & Plan (1) Perimenopause: Code(s): N95.1 - Menopausal and female climacteric states (2) Cervical cancer screening: Comment: 09/10/2022 Pap is unsatisfactory ?due to the lubricant? lubricant was not used. HPV is negative will need a repeat. 09/16/2023 Pap also is unsatisfactory due to lubricant though lubricant was not used HPV is negative. Still needs repeat.; Pap smear repeated 11/27/2023 patient denies lubricant use. Code(s): Z12.4 - Encounter for screening for malignant neoplasm of cervix Plan Patient speaks Mandarin but she said she understood some Finnish she is accompanied by her . She denies any recent lubricant use. Pap smear was repeated explained that the ?? lubricant was the reason the Pap smear was read as inadequate. As customary no lubricant was used at last exam nor this exam. Patient confirms that she did not use lubricant in the last few days. Coding Level of Care Code Est Pt Level 3 (44836) Diagnoses Perimenopause N95.1 Cervical cancer screening Z12.4
== END 2023-11-27 14:08 | disposition home or self-care (01) ==
LOC: HO.HWSM 13:29
PROVIDERS: PCP Internal Medicine; Visit Provider Advanced Practice Midwife
DX: N95.1 Menopausal and female climacteric states (principal); Z12.4 Encounter for screening for malignant neoplasm of cervix
CPT/HCPCS: 99213

== ENCOUNTER 2024-02-05 09:19 | Outpatient (AMB) | payer OTHER, SELFPAY ==
--- NOTE | 2024-02-05 09:24 | MHC.OFFVIS ---
Intake Vital Signs 02/05/24 09:25 Height 5 ft 4 in Weight 133 lb BMI 22.8 BP 116/58 L Blood Pressure Location Rt brachial Position Sitting Pulse 84 Intake Visit Reasons: Pain in left upper arm, breast exam Intake Note: This patient presents for an assessment for cyst on the right arm. Pt c/o; reports occasional left upper arm pain. Manuscript Reader Required: No Accompanied by: Spouse Allergies No Known Allergies Allergy (Verified 02/05/24 09:28) Medication List - Last Reconciled 02/05/24 by Remberto Taylor MD betamethasone dipropionate 0.05% 1 appl topical DAILY PRN mometasone 0.1% 1 appl topical DAILY PRN HPI Pain in left upper arm, breast exam HPI Details She was referred by her primary care physician because of the patient's concerns of pain on the left breast and the axilla. She has had this for a few months. She does have a history of left breast biopsy in October, which was benign. She had a follow-up mammogram last October, which was unremarkable except for biopsy changes. She is supposed to have a yearly mammogram as well. She denies any palpable mass. [facility] Medical History (Updated 02/05/24 @ 09:44 by Remberto Taylor MD) Breast pain Allergic rhinitis GERD without esophagitis Elevated liver enzymes Vitamin D deficiency Breast lump in upper outer quadrant Fibroadenoma Surgical History S/P breast biopsy, left (~05/12/15) H/O removal of cyst Family History Father No problems noted. Mother No problems noted. Social History Housing: House Alcohol intake: never Patient Tobacco Use Status: Never used Tobacco Second Hand Smoke Exposure: No service: No Current occupational status: employed Cognitive needs: No Hearing needs: No Vision needs: No Female Reproductive History Menstrual Age of Menarche: 15 Review of Systems Const Denies chills and Denies fever(s) Card Denies chest pain, Denies dyspnea and Denies dyspnea on exertion Resp Denies cough, Denies dyspnea and Denies dyspnea on exertion GI Denies hematochezia and Denies change in bowel habits Denies hematuria Musc Denies back pain and Denies limited range of motion Neuro Denies focal weakness and Denies convulsions Psych Denies depression and Denies mood swings Physical Exam Vital Signs: Last Vital Signs Pulse 84 02/05/24 09:25 BP 116/58 L 02/05/24 09:25 BMI result Body Mass Index 22.8 Const General: comfortable and no acute distress Orientation/consciousness: patient oriented x3 Neck Neck: Yes no lymphadenopathy Chest Other: No palpable breast masses, no nipple or skin changes, no tenderness at this time Resp Auscultation: clear to auscultation bilaterally Cardio Rhythm: regular rhythm GI Palpation (GI): Soft to palpation, nontender and no guarding Neuro General: patient oriented x3 Assessment & Plan Assessment & Plan (1) Breast pain: Code(s): N64.4 - Mastodynia Plan: She describes some sharp pain on the upper part of the left breast as well as towards the axilla. Current exam does reveal any palpable mass or any nipple or skin changes. She just had a mammogram 3 months ago and this was unremarkable. The location of her pain seems to correlate with her previous biopsy site. I assured her therefore that currently there is no palpable breast mass, and that her pain may be secondary to the postop changes from her previous biopsy in 2021 She was reminded to undergo regular screening mammograms and she says that she is already scheduled to have a repeat later this year. She should come back to the office if she notices any changes with regards to the breast or any palpable mass. Coding Level of Care Code Est Pt Level 3 (25719) Diagnoses Breast pain N64.4
[2024-02-05 09:25] VITALS: BP 116/58; PULSE 84; BMI 22.8
== END 2024-02-05 09:41 | disposition home or self-care (01) ==
PROVIDERS: PCP Internal Medicine; Visit Provider Surgery
DX: N64.4 Mastodynia (principal)
CPT/HCPCS: 99213

== ENCOUNTER → 2024-02-05 09:19 | Outpatient (BNVA) | payer OTHER, SELFPAY | PROVIDERS: PCP Internal Medicine; Visit Provider Surgery | DX: N64.4 Mastodynia (principal); M79.602 Pain in left arm; M79.601 Pain in right arm | CPT/HCPCS: 99212 ==

== ENCOUNTER 2024-09-23 12:48 | Outpatient (AMB) | payer OTHER, SELFPAY ==
--- NOTE | 2024-09-23 13:00 | MHC.OFFVIS ---
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 Today she communicated and felt she did not need translation services. She is doing well this year and does not have any toolroom machinist concerns her breast follow-up is occurring every 6 months now and she has an appointment in October and I had the OA check on the date and it is October 14 at 09:30 in the morning for her follow-up mammogram. She is having regular screening point according to the patient. Her last 2 Pap smears have come back inadequate either insufficient cells or lubricant . Firstly lubricant is never use by this provider prior to do Pap smear in the patient denied any vaginal it is as well. Additionally since the pen ultimate Pap was insufficient extra effort was given to make sure there was a vigorous Pap done and full discharge of been simply cells was made into the thin prep container however it is still came back inadequate cellularity. Again a vigorous Pap will be attempted today Patient and her went to [place] to visit their family last month for an entire month she has been back 15 days she had a very good visit took 14 hour flight together there she had not been there since 6 years prior so it to be another few years to she goes again but she was very happy to go and visit everyone. [facility] Medical History (Updated 02/05/24 @ 09:44 by Remberto Taylor MD) Breast pain Allergic rhinitis GERD without esophagitis Elevated liver enzymes Vitamin D deficiency Breast lump in upper outer quadrant Fibroadenoma Surgical History S/P breast biopsy, left (~05/12/15) H/O removal of cyst Family History Father No problems noted. Mother No problems noted. Social History Housing: House Alcohol intake: never Patient Tobacco Use Status: Never used Tobacco Second Hand Smoke Exposure: No service: No Current occupational status: employed Cognitive needs: No Hearing needs: No Vision needs: No Female Reproductive History Menstrual Age of Menarche: 15 Menopause type: natural Total pregnancies: 2 Full term: 2 History of abnormal pap smear: No (See HPI plan and problem list; two previous Paps deemed inadequate) History of STI: No Date of Mammogram: 10/16/23 History of abnormal mammogram: Yes (2022) Results Reviewed Results Reviewed: Name: Prakash Keller Age/Sex: 53/F Attending: Jessica Uribe CNM : 1970 Submitted by: Jessica Uribe CNM Copies to: John Lilly MD MR #: [id number] Status: DEP REF Collected: 11/27/23 Location: [facility] Received: 11/28/23 Interpretation Unsatisfactory. Scant cellularity. HPV mRNA E6/E7: NOT DETECTED This assay detects E6/E7 viral messenger RNA (mRNA) from 14 high-risk HPV types (16, 18, 31, 33, 35, 39, 45, 51, 52, 56, 58, 59, 66, 68) HPV testing performed by [facility], [place], [place]. See reference laboratory portion of the EMR for entire report. Clinical Information LMP: No menses Previous PAP test: 09/17/23, Abnormal Other history: Unsatisfactory Material Received ThinPrep-Cervical Copies To John Lilly MD [address] [address] Jessica Uribe CNM [address] [place] [address] DrNoel Stahl [address] [place] [address] [place] [address] Electronically Signed By: SUNITHA Herbert ([facility]) 12/13/23 1736 The Pap Test is a screening procedure with the inherent possibility of both false negative and false positive results. Results should be interpreted in the context of historic and current clinical findings. Reliability of the Pap Test is enhanced by performing the test on a regular repetitive basis. Patient: Prakash Keller Age/Sex: 53/F MR#: [id number] Page 1 of 1. Please note this Pap was done because the previous done prior to this was deemed inadequate due to use of lubricant which this provider absolutely had not used and the patient denied use of lubricant as well there was no lubricant visible during the either exam. Additionally because of the previous insufficient sampling extra extra effort was taken to ensure adequate sampling by usual methods with Cytobrush and scraping tool. Name: Prakash Keller Age/Sex: 53/F Attending: Jessica Uribe CNM : 1970 Submitted by: Jessica Uribe CNM Copies to: John Lilly MD MR #: [id number] Status: DEP REF Collected: 09/16/23 Location: [facility] Received: 09/17/23 Interpretation Unsatisfactory. Obscuring foreign material consistent with lubricant. Scant cellularity. HPV mRNA E6/E7: NOT DETECTED This assay detects E6/E7 viral messenger RNA (mRNA) from 14 high-risk HPV types (16, 18, 31, 33, 35, 39, 45, 51, 52, 56, 58, 59, 66, 68) HPV testing performed by [facility], [place], [place]. See reference laboratory portion of the EMR for entire report. Clinical Information LMP: Menopausal Previous PAP test: 2021, WNL Other history: Unsatisfactory cytologic smear of cervix Material Received ThinPrep-Cervical Copies To John Lilly MD [address] [place] [address] [place] [address] Jessica Uribe [address] Stahl [place] [id number] Electronically Signed By: SUNITHA Herbert ([facility]) 10/03/23 1127 The Pap Test is a screening procedure with the inherent possibility of both false negative and false positive results. Results should be interpreted in the context of historic and current clinical findings. Reliability of the Pap Test is enhanced by performing the test on a regular repetitive basis. Patient: Prakash Keller Age/Sex: 53/F MR#: [id number] Page 1 of 1 Assessment & Plan Assessment & Plan (1) Perimenopause: Code(s): N95.1 - Menopausal and female climacteric states Category: Medical (2) Cervical cancer screening: Comment: 09/10/2022 Pap is unsatisfactory ?due to the lubricant? lubricant was not used. HPV is negative will need a repeat. 09/16/2023 Pap also is unsatisfactory due to lubricant though lubricant was not used HPV is negative. Still needs repeat.; Pap smear repeated 11/27/2023 patient denies lubricant use.--Pap smear still came back inadequate due to insufficient cells HPV negative. Per [facility] acceptable to repeat screening in 5 years however this is based on limited data. will recommend 1 year follow-up. Code(s): Z12.4 - Encounter for screening for malignant neoplasm of cervix Category: Medical (3) Well woman exam with routine gynecological exam: Code(s): Z01.419 - Encounter for gynecological examination (general) (routine) without abnormal findings Category: Medical (4) Abnormal mammogram of right breast: Code(s): R92.8 - Other abnormal and inconclusive findings on diagnostic imaging of breast Category: Medical Plan -----Discussed in this visit the following: healthy balanced diet, regular and consistent exercise, getting recommended health screens, doing the best she can for her particular health concerns, kegel exercises, pap smear screening and followup recommendations, mammography screening and SBE, normal changes in cycles in her life stage--- . Pap smear was again done vigorously and again as always, was done without lubricant. Await results. Patient states she is getting every six-month follow-up mammograms the last note from Dr. Chamberlain indicated yearly follow-up nevertheless her next mammogram is 10/14/2024. She is not having any problems in her health right now we will see her 1 year. Coding Level of Care Code Est Pt Prev Care 40-64y(14322) Diagnoses Perimenopause N95.1 Cervical cancer screening Z12.4 Well woman exam with routine gynecological exam Z01.419 Abnormal mammogram of right breast R92.8
== END 2024-09-23 13:35 | disposition home or self-care (01) ==
LOC: HO.HWSM 12:48
PROVIDERS: PCP Internal Medicine; Visit Provider Advanced Practice Midwife
DX: Z01.419 Encounter for gynecological examination (general) (routine) without abnormal findings (principal); N95.1 Menopausal and female climacteric states; Z12.4 Encounter for screening for malignant neoplasm of cervix; R92.8 Other abnormal and inconclusive findings on diagnostic imaging of breast
CPT/HCPCS: 99396

== ENCOUNTER → 2024-09-23 12:48 | Outpatient (BNVA) | payer OTHER, SELFPAY | PROVIDERS: PCP Internal Medicine; Visit Provider Advanced Practice Midwife | DX: Z01.419 Encounter for gynecological examination (general) (routine) without abnormal findings (principal); N95.1 Menopausal and female climacteric states; R92.8 Other abnormal and inconclusive findings on diagnostic imaging of breast | CPT/HCPCS: 99396 ==

== ENCOUNTER 2024-09-23 18:11 | Outpatient (REF) | payer OTHER, SELFPAY ==
[2024-09-24 10:21] LABS: HPV 16,18/45 See PAP report
== END 2024-09-23 18:12 | disposition home or self-care (01) ==
LOC: HO.HHCLNP 18:11
PROVIDERS: Visit Provider Advanced Practice Midwife
DX: Z01.419 Encounter for gynecological examination (general) (routine) without abnormal findings (principal); Z11.51 Encounter for screening for human papillomavirus (HPV)
CPT/HCPCS: 87624; 88175

== ENCOUNTER 2024-10-09 12:51 | Outpatient (AMB) | payer OTHER, SELFPAY ==
[2024-10-09 12:56] VITALS: BP 110/64; PULSE 66; O2SAT 99; BMI 23.0
--- NOTE | 2024-10-09 12:56 | MHC.PC.OV ---
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: No Accompanied by: Self / Same As Patient Allergies No Known Allergies Allergy (Verified 10/09/24 13:15) Medication List - Last Reconciled 10/09/24 by John Lilly MD No Known Home Meds Tobacco use date assessed: 10/09/24 Dental Screening Dental Screen Date: 10/09/24 Did you have a dental visit in the last 12 months?: No Did you have a dental problem in the last 6 months where you did not have access to dental care?: No Was dental information given to patient?: No HPI ANNUAL Needs PHQ9 HPI Details Patient comes in today for her annual physical examination States that she feels okay but reports experiencing on and off cramping pain in both of her legs lately -states that his symptoms seem to be more often occurring in her left leg and are frequently more prominent at nighttime She denies any headaches or dizziness Denies any chest pains, no shortness of breath No nausea/vomiting, no abdominal pain No change in bowel habits noted She denies any acute urinary symptoms She is up-to-date with her cancer screenings - had her annual pap smear and gynecology exam done a couple of weeks ago on 09/24/2024 She had her colonoscopy last done with Dr. Jamison on 01/13/2019 - (+) hyperplastic polyp; recommend repeat colonoscopy in 10 years (2028) Her annual mammogram was last done in 10/2023 and she is scheduled for her repeat mammogram next week on 10/14/2024 [facility] Medical History (Updated 10/11/24 @ 14:24 by John Lilly MD) Breast pain Allergic rhinitis GERD without esophagitis Elevated liver enzymes Vitamin D deficiency Breast lump in upper outer quadrant Fibroadenoma Surgical History (Updated 10/09/24 @ 13:18 by John Lilly MD) History of colonoscopy S/P breast biopsy, left (~05/12/15) H/O removal of cyst Family History Father No problems noted. Mother No problems noted. Social History Housing: House Alcohol intake: never Patient Tobacco Use Status: Never used Tobacco Second Hand Smoke Exposure: No service: No Current occupational status: employed Cognitive needs: No Hearing needs: No Vision needs: No Female Reproductive History Menstrual Age of Menarche: 15 Questionnaire PHQ-9 Over the last 2 weeks, how often have you been bothered by any of the following problems? 1. Little interest or pleasure in doing things: not at all 2. Feeling down, depressed, or hopeless: not at all 3. Trouble falling or staying asleep, or sleeping too much: not at all 4. Feeling tired or having little energy: not at all 5. Poor appetite or overeating: not at all 6. Feeling bad about yourself - or that you are a failure or have let yourself or your family down: not at all 7. Trouble concentrating on things, such as reading the newspaper or watching television: not at all 8. Moving or speaking so slowly that other people could have noticed. Or the opposite - being so fidgety or restless that you have been moving around a lot more than usual: not at all 9. Thoughts that you would be better off or of hurting yourself in some way: not at all Total score: 0 Depression Screening Interpretation: Negative Depression Screening Done: Yes 15990 - PHQ-9 Billing: Yes Source: Developed by Drs. Hai Marcum, Unique Adam, Erick Horner and colleagues, with an educational tg from [employer]. Thrive Questionnaire Date Thrive assessed: 10/09/24 I am a: Patient What is your living situation today?: I have a steady place to live Within the past 12 months, did the food you bought not last and you didn't have the money to get more?: Never true Within the past 12 months, did you worry whether your food would run out before you got money to buy more?: Never true Do you have trouble paying for medicines?: No Do you have trouble getting transportation to medical appointments?: No Do you have trouble paying your heating and electricity bill?: No Do you have trouble taking care of your child, family member or friend?: No Do you have trouble with day-to-day activities such as bathing, preparing meals, shopping, managing finances, etc.?: No Are you currently unemployed and looking for a job?: No Are you interested in more education?: I choose not to answer this question Please select the resources that you would like help with: None Currently or been in a relationship where the following occur: No concerns reported THRIVE Score: 0 AUDIT C Alcohol Use Questionnaire (AUDIT-C) 1. How often do you have a drink containing alcohol?: Never 3. How often do you have six or more drinks on one occasion?: Never Total Score: 0 Score Reviewed/Action Taken: Yes YOVANA-7 AMB Questionnaire YOVANA-7 Date YOVANA - 7 assessed: 10/09/24 Feeling nervous, anxious, or on edge: 0 = Not at all Not being able to stop or control worryin = Not at all Worrying too much about different things: 0 = Not at all Trouble relaxin = Not at all Being so restless that it is hard to sit still: 0 = Not at all Becoming easily annoyed or irritable: 0 = Not at all Feeling afraid as if something awful might happen: 0 = Not at all Total YOVANA-7 score (0-4 normal; 5-9 mild; 10-14 moderate; 15-21 severe): 0 Source: Developed by Drs. Hai Marcum, Unique Adam, Erick Horner and colleagues, with an educational tg from [employer]. Review of Systems Const Denies chills, Denies fatigue, Denies fever(s), Denies headache(s) and Denies malaise Eyes Denies blurry vision, Denies change in vision, Denies irritation and Denies itchy eyes ENT Denies dysphagia, Denies dizziness, Denies otalgia, Denies headache(s), Denies nasal congestion, Denies neck pain, Denies odynophagia, Denies sinus pain and Denies sore throat Card Denies chest pain, Denies rapid heart rate, Denies irregular heart rhythm, Denies palpitations and Denies dyspnea Resp Denies chest congestion, Denies cough, Denies dyspnea and Denies wheezing GI Denies abdominal pain, Denies bloating, Denies constipation, Denies dysphagia, Denies heartburn, Denies diarrhea, Denies nausea, Denies odynophagia and Denies vomiting Denies hematuria, Denies urinary frequency, Denies dysuria, Denies urinary incontinence and Denies urinary urgency Musc Denies back pain, Denies arthralgias, Denies joint swelling, Reports muscle cramps (on and off in both legs, mostly worse at night), Denies muscle weakness and Denies neck pain Skin/Breast Denies breast pain, Denies breast mass, Denies change in pigmentation, Denies lesions, Denies rash and Denies unusual bruising Neuro Denies dizziness, Denies headache(s) and Denies paresthesias Psych Denies anxiety and Denies depression Endo Denies fatigue and Denies palpitations Benson/Lymph Denies easy bruising Aller/Immun Denies itchy eyes and Denies wheezing Physical exam (Primary Care) Vital Signs: Last Vital Signs Pulse 66 10/09/24 12:56 BP 110/64 10/09/24 12:56 Pulse Ox 99 10/09/24 12:56 Oxygen Delivery Method Room Air 10/09/24 12:56 BMI result Body Mass Index 23.0 Tobacco/Smoking Status: Tobacco use Status Tobacco use date assessed 10/09/24 10/09/24 12:59 Patient Tobacco Use Status Never used Tobacco 10/09/24 12:59 PHQ-9: PHQ-9 Score PHQ-9: Total score 0 10/09/24 13:16 Depression Screening Interpretation: Negative Thrive Assessment: Date of Thrive Assessment Date Thrive assessed 10/09/24 10/09/24 12:59 Currently or been in a relationship where the following occur: No concerns reported Const General: no acute distress, alert and awake Orientation/consciousness: patient oriented x3 HENMT Head: Yes normocephalic and Yes atraumatic Ears: external ears normal, TM's normal bilaterally and EAC's normal General nose exam: No nasal discharge present Face and sinus: Yes normal facial exam and Yes sinuses nontender Teeth and gingiva: dentition normal Throat: Yes posterior oropharynx normal and Yes tonsils normal (no TP congestion) Eyes Eyelids: Yes eyelids normal Conjunctivae: conjunctivae normal Pupils: Equal, round and reactive pupils present EOM: EOMs intact bilaterally Neck Neck: Yes no lymphadenopathy and Yes supple Thyroid: Thyroid normal Resp Auscultation: clear to auscultation bilaterally, no rales and no wheezes Cardio Rate: regular rate Rhythm: regular rhythm Heart sounds: no murmurs GI Palpation (GI): Soft to palpation, nontender and No hepatosplenomegaly present Auscultation: normal bowel sounds General: Yes no CVA tenderness Back/Spine/Pelvis Back: no CVA tenderness Thoracic/Lumbar Spine: thoracic and lumbar spine normal to inspection Skin Lesions: no lesions Rashes: no rashes Neuro General: patient oriented x3, moves all extremities, no focal motor deficits and CN's II-XI intact bilaterally Cranial nerves: Yes Equal, round and reactive pupils present Cognition (Neuro): normal cognition Gait exam (Neuro): Normal gait present Extrem General: Yes no clubbing, cyanosis or edema Coding Level of Care Code Est Pt Prev Care 40-64y(15535) Diagnoses Annual physical exam Z00.00 Vitamin D deficiency E55.9 GERD without esophagitis K21.9 Bilateral leg cramps R25.2 Osteoporosis screening Z13.820 Additional Codes PHQ-9 - 69083 - PHQ-9 Billing: Yes ([id number]) Assessment & Plan Assessment & Plan (1) Annual physical exam: Code(s): Z00.00 - Encounter for general adult medical examination without abnormal findings Category: Medical Plan: Check labs She is currently up-to-date with all of her cancer screenings She will be going for her annual mammogram next week on 10/14/2024 (2) Vitamin D deficiency: Code(s): E55.9 - Vitamin D deficiency, unspecified Category: Medical Plan: Continue Vitamin D3 2000 units QD Will recheck her vitamin-D level for follow-up (3) GERD without esophagitis: Code(s): K21.9 - Gastro-esophageal reflux disease without esophagitis Category: Medical Plan: Dietary restrictions reinforced (4) Bilateral leg cramps: Code(s): R25.2 - Cramp and spasm Category: Medical Plan: Will have patient start taking some OTC MagOx 400 mg BID for her leg cramps (5) Osteoporosis screening: Code(s): Z13.820 - Encounter for screening for osteoporosis Category: Medical Plan: Will send patient for BMD for osteoporosis screening Plan To return in 1 year for her next annual physical examination Orders: Orders Comprehensive [place]. Panel Fast 10/09/24 E78.00 - Pure hypercholesterolemia, unspecified, Z00.00 - Encounter for general adult medical examination without abnormal findings Lipid Panel 10/09/24 E78.00 - Pure hypercholesterolemia, unspecified, Z00.00 - Encounter for general adult medical examination without abnormal findings TSH reflex Free T4 10/09/24 E78.00 - Pure hypercholesterolemia, unspecified, Z00.00 - Encounter for general adult medical examination without abnormal findings UA CC w/rflx Micro + Cult 10/09/24 R30.0 - Dysuria, Z00.00 - Encounter for general adult medical examination without abnormal findings Vitamin D 25-OH Total 10/09/24 E55.9 - Vitamin D deficiency, unspecified, Z00.00 - Encounter for general adult medical examination without abnormal findings Hemoglobin A1c 10/09/24 R73.9 - Hyperglycemia, unspecified XR DEXA axial skeleton 10/09/24 Z78.0 - Asymptomatic menopausal state Complete Blood Count Auto Diff 10/09/24 D64.9 - Anemia, unspecified, Z00.00 - Encounter for general adult medical examination without abnormal findings Parathyroid Hormone Intact 10/09/24 E83.52 - Hypercalcemia Medications: New cholecalciferol (vitamin D3) 50 mcg PO DAILY 90 days 90 caps 3RF E55.9 - Vitamin D deficiency, unspecified magnesium oxide (MagOx) 400 mg PO BID 30 days 60 tabs 5RF
== END 2024-10-09 13:35 | disposition home or self-care (01) ==
PROVIDERS: PCP Internal Medicine; Visit Provider Internal Medicine
DX: Z00.00 Encounter for general adult medical examination without abnormal findings (principal); E55.9 Vitamin D deficiency, unspecified; K21.9 Gastro-esophageal reflux disease without esophagitis; R25.2 Cramp and spasm; Z13.820 Encounter for screening for osteoporosis

== ENCOUNTER → 2024-10-09 12:51 | Outpatient (BNVA) | payer OTHER, SELFPAY | PROVIDERS: PCP Internal Medicine; Visit Provider Internal Medicine | DX: Z00.00 Encounter for general adult medical examination without abnormal findings (principal); E55.9 Vitamin D deficiency, unspecified; K21.9 Gastro-esophageal reflux disease without esophagitis; R25.2 Cramp and spasm | CPT/HCPCS: 96127; 99396 ==

== ENCOUNTER 2024-10-14 08:01 | Outpatient (REF) | payer OTHER, SELFPAY ==
[2024-10-14 08:29] LABS: MANUAL DIFF FLAG NO
[2024-10-14 08:51] LABS: Basophils Percent Auto 0.5 % (0-2); Eosinophils Absolute Auto 0.1 X10*3/uL (0.0-0.4); Eosinophils Percent Auto 1.6 % (0-4); Hematocrit 42.9 % (37.0-47.0); Hemoglobin 14.6 g/dl (12.0-16.0); Imm Gran Abs Auto 0.01 X10*3/uL (0.00-0.03); Imm Gran Pct Auto 0.2 % (0.0-0.4); Lymphocytes Absolute Auto 1.3 X10*3/uL (1.2-4.9); Lymphocytes Percent Auto 30.8 % (20-40); Mean Corpuscular Hemoglobin 29.6 pg (27.0-33.0); Mean Platelet Volume 9.2 fL (9.4-12.3); Monocytes Absolute Auto 0.3 X10*3/uL (0.1-1.2); Monocytes Percent Auto 7.5 % (2-11); Neutrophils Absolute Auto 2.5 x10*3/uL (2.0-8.3); Neutrophils Percent Auto 59.4 % (45-73); Platelet Count 232 X10*3/uL (160-400); Red Blood Count 4.93 X10*6/uL (4.20-5.50); Red Cell Distribution Width 11.6 % (11.0-16.0); White Blood Count 4.3 X10*3/uL (4.8-10.8)
[2024-10-14 09:00] LABS: Estimated Average Glucose 105 mg/dL; Hemoglobin A1C 127.1981 umol/L; Hemoglobin A1c % 5.3 % (<6.0); Total Hemoglobin (HGBA1C) 3665.4005 umol/L
[2024-10-14 09:13] LABS: Appearance Urine Clear; Color Urine Yellow; Glucose Urine UA Negative (Negative); Leukocyte Esterase Urine Negative (Negative); Nitrite Urine Negative (Negative); Urine Blood Negative (Negative); Urine Ketones Negative (Negative); Urine Protein Negative (Neg-Trace)
[2024-10-14 09:23] LABS: Alanine Aminotransferase 97 U/L (0-31); Albumin Level 4.5 g/dL (3.5-5.0); Alkaline Phosphatase 114 U/L (39-117); Anion Gap 13 (12-20); Aspartate Amino Transferase 53 U/L (5-31); Bilirubin Total 0.7 mg/dL (0.0-1.0); Blood Urea Nitrogen 11 mg/dL (9-16); Calcium 10.3 mg/dL (8.4-10.2); Carbon Dioxide 26 mmol/L (22-29); Chloride 107 mmol/L (96-108); Cholesterol 199 mg/dL (<200); Estimated Glomerular Filt Rate > 60; Glucose Fasting 102 mg/dL (60-99); HDL Cholesterol 57 mg/dL (>40); LDL Cholesterol Calculated 122 mg/dL (<100); Potassium 4.1 mmol/L (3.3-5.1); Sodium 142 mmol/L (135-145); Triglycerides 102 mg/dL (<150)
[2024-10-14 09:42] LABS: TSH reflex Free T4 2.15 uIU/mL (0.32-4.0); Vitamin D 25-OH Total 26.6 ng/mL (>30)
[2024-10-14 10:11] LABS: Parathyroid Hormone Intact 58.5 pg/mL (8.7-77.1)
== END 2024-10-14 08:02 | disposition home or self-care (01) ==
LOC: HO.LAB 08:01
PROVIDERS: PCP Internal Medicine; Visit Provider Internal Medicine
DX: Z00.00 Encounter for general adult medical examination without abnormal findings (principal); E78.00 Pure hypercholesterolemia, unspecified; R30.0 Dysuria; E55.9 Vitamin D deficiency, unspecified; D64.9 Anemia, unspecified; E83.52 Hypercalcemia; R73.9 Hyperglycemia, unspecified
CPT/HCPCS: 36415; 80053; 80061; 81003; 82306; 83036; 83970; 84443; 85025

== ENCOUNTER 2024-10-16 13:05 | Outpatient (REF) | payer OTHER, SELFPAY ==
--- NOTE | ~2024-10-16 | MM_ITS ---
EXAMINATION: MM DIAGNOSTIC DIGITAL BREAST TOMOSYNTHESIS, BILATERAL CLINICAL INFORMATION: History of right breast upper central architectural distortion with a probable correlate on ultrasound. 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 Post procedure marker clip is just posterior to the area of architectural distortion and follow-up was recommended. COMPARISON: Mammography: Comparison is made with relevant prior exams. TECHNIQUE: Digital breast mammography with tomosynthesis is performed in both the craniocaudal and mediolateral oblique views along with computer-aided detection (CAD). FINDINGS: The breasts are extremely dense, which lowers the sensitivity of mammography (ACR BI-RADS breast composition Category d). Left: There are no significant masses, abnormal calcifications, or other abnormalities. Right: Marker clip in the upper-outer breast with area of architectural distortion seen anteriorly in the upper central breast posterior depth. Given the extremely dense breast tissue is difficult to determine if there has been any changes to the area of architectural distortion and clip is not directly inside the area of distortion. No suspicious calcifications or other abnormal findings. Breast MRI is recommended at this time for further evaluation of this area. Results are provided to the patient at time of visit by the technologist. MM/MM tomosynthesis diagnostic BI IMPRESSION: Left: Negative. Right: Architectural distortion the upper central breast with a marker clip adjacent from an ultrasound finding demonstrating sclerosing adenosis. Given the patient's dense breast tissue and area of persistent architectural distortion recommend breast MRI at this time for further evaluation. Breast by needs to be ordered by the patient's providing clinician. In addition recommend diagnostic bilateral mammogram in one year when the patient is due for bilateral mammography. ASSESSMENT: BI-RADS BI-RADS 3 - Probably benign finding(s) - 12 month follow-up suggested RECOMMENDATION: 12 month diagnostic follow up This patient's information was entered into a reminder system with a target due date for their next mammogram. Electronically signed by: Tenisha Wilkinson DO 10/16/2024 04:56 PM EST
== END 2024-10-16 13:06 | disposition home or self-care (01) ==
LOC: HO.MAMMO 13:05
PROVIDERS: Visit Provider Advanced Practice Midwife
DX: R92.2 Inconclusive mammogram (principal)
CPT/HCPCS: 77062; 77066

== ENCOUNTER → 2024-10-16 13:15 | Outpatient (BNV) | payer OTHER, SELFPAY | PROVIDERS: Visit Provider Internal Medicine | DX: N60.31 Fibrosclerosis of right breast (principal); R92.343 Mammographic extreme density, bilateral breasts | CPT/HCPCS: 77062; 77066 ==

== ENCOUNTER 2024-12-17 14:49 | Outpatient (AMB) | payer OTHER, SELFPAY ==
--- NOTE | 2024-12-17 14:50 | MHC.OFFVIS ---
Vital Signs 12/17/24 14:59 Height 5 ft 4 in Weight 124 lb 4 oz BMI 21.3 BP 128/82 Blood Pressure Location Lt brachial Position Sitting Pulse 73 Intake Visit Reasons: abnormal mammogram Intake Note: Patient is seen in office for follow up visit, following abnormal mammogram. Pt c/o: no concerns regarding the breast, was refer by Veronica due to concerns in mammogram mm:10/16/24 per: Jessica Whitney [employer] Grinding [employer] Operator Required: No Accompanied by: Spouse Allergies No Known Allergies Allergy (Verified 12/17/24 14:57) Is last menstrual period known: Yes (2021) Post menopausal: Yes Patient : No HPI Comments Details: 54-year-old female patient presenting with a recent screening mammogram which revealed a faint asymmetric density in the right breast at the 12 o'clock position. Subsequent follow-up mammographic images and ultrasound performed on 10/30/2022 confirmed the asymmetric density which by ultrasound measured approximately 4 mm in diameter. This was located in the 12-1 o'clock position. Finding was felt to be suspicious for malignancy and biopsy recommended. She reports a previous biopsy in the same area approximately 26 years ago which apparently was a fibroadenoma. She also underwent surgery in the left breast which was a fibroadenoma. Family history is significant for a maternal with ovarian cancer. There is no family history of breast cancer. She she does report pain in the left breast at the upper outer quadrant but denies any symptoms in the right breast. She underwent ultrasound-guided core biopsy of the right breast on 11/01/2022. Pathology revealed dense stromal fibrosis negative for atypia or malignancy. Subsequent mammogram performed on 10/16/2024 reveals architectural distortion in the upper central breast with a marker adjacent to the distortion. Because of the dense breast tissue, MRI was recommended to better evaluate her breast tissue. Follow-up mammogram in 12 months was recommended (BI-RADS 3). [facility] Medical History Breast pain Allergic rhinitis GERD without esophagitis Elevated liver enzymes Vitamin D deficiency Breast lump in upper outer quadrant Fibroadenoma Surgical History History of colonoscopy S/P breast biopsy, left (~05/12/15) H/O removal of cyst Family History Father No problems noted. Mother No problems noted. Social History Housing: House Alcohol intake: never Patient Tobacco Use Status: Never used Tobacco Second Hand Smoke Exposure: No Patient : No service: No Current occupational status: employed Cognitive needs: No Hearing needs: No Vision needs: No Female Reproductive History Menstrual Age of Menarche: 15 Review of Systems Const All systems reviewed & are unremarkable except as noted in HPI and below Denies chills, Denies fever(s), Denies headache(s), Denies poor appetite and Denies weakness ENT Denies headache(s) Card Denies chest pain, Denies irregular heart rhythm, Denies palpitations and Denies dyspnea Resp Denies cough, Denies excessive phlegm production and Denies dyspnea GI Denies abdominal pain, Denies bloating, Denies change in bowel habits, Denies constipation, Denies heartburn, Denies diarrhea, Denies nausea and Denies vomiting Denies urinary frequency Musc Denies back pain, Denies muscle weakness and Denies numbness Skin/Breast Reports as per HPI, Reports breast pain, Denies breast mass, Denies changing lesions and Denies unusual bruising Neuro Denies headache(s), Denies numbness, Denies paresthesias and Denies weakness Psych Denies anxiety and Denies depression Endo Denies palpitations Benson/Lymph Denies lymphadenopathy Physical Exam Vital Signs: Last Vital Signs Pulse 73 12/17/24 14:59 BP 128/82 12/17/24 14:59 BMI result Body Mass Index 21.3 Const General: cooperative and no acute distress Nutritional Appearance: well nourished Orientation/consciousness: patient oriented x3 Limitations: no limitations HEENT Head: Yes normocephalic and Yes atraumatic Ears: hearing grossly normal bilaterally Chest Other: Left breast: No skin change, no nipple retraction, no nipple discharge, no palpable mass, no enlarged lymph nodes. Scars as noted below. Right breast: No skin change, no nipple retraction, no nipple discharge, no palpable mass, no enlarged lymph nodes. Scars as noted below. Chest/axillae images: 1. 2. 3. 4. Resp Effort & Inspection: normal respiratory effort, no audible wheezes, no cough and no respiratory distress Cardio Jugular venous distension: no JVD GI Inspection: Yes normal to inspection Skin Other: Warm, dry, no rash Neuro General: patient oriented x3 Extrem General: Yes no clubbing, cyanosis or edema Assessment & Plan Assessment & Plan (1) Abnormal mammogram of right breast: Code(s): R92.8 - Other abnormal and inconclusive findings on diagnostic imaging of breast Category: Medical (2) Dense breast tissue on mammogram: Code(s): R92.30 - Dense breasts, unspecified Category: Medical Qualifiers: Mammographic dense breast tissue type: extremely dense Laterality: bilateral Qualified Code(s): R92.343 - Mammographic extreme density, bilateral breasts Plan 54-year-old female patient returning for follow-up breast examination. Examination today revealed no suspicious findings in either breast. Her most recent mammogram revealed stable architectural distortion which was previously biopsied and determined to be benign. Because of her extremely dense breasts, MRI of the breast is recommended. This has been ordered today. I recommended follow-up in 6 months for breast examination. Orders: Orders MR breast BI wo/w con Today R92.30 - Dense breasts, unspecified, R92.8 - Other abnormal and inconclusive findings on diagnostic imaging of breast Coding Level of Care Code Est Pt Level 3 (38193) Diagnoses Abnormal mammogram of right breast R92.8 Extremely dense tissue of both breasts on mammography R92.343 Mammographic dense breast tissue type: extremely dense Laterality: bilateral
[2024-12-17 14:59] VITALS: BP 128/82; PULSE 73; BMI 21.3
== END 2024-12-17 15:15 | disposition home or self-care (01) ==
LOC: HO.HGS 14:49
PROVIDERS: PCP Internal Medicine; Visit Provider Surgery
DX: R92.8 Other abnormal and inconclusive findings on diagnostic imaging of breast (principal); R92.343 Mammographic extreme density, bilateral breasts
CPT/HCPCS: 99213

== ENCOUNTER → 2024-12-17 14:49 | Outpatient (BNVA) | payer OTHER, SELFPAY | PROVIDERS: PCP Internal Medicine; Visit Provider Surgery | DX: R92.8 Other abnormal and inconclusive findings on diagnostic imaging of breast (principal); R92.343 Mammographic extreme density, bilateral breasts | CPT/HCPCS: 99212 ==

== ENCOUNTER → 2024-12-24 13:30 | Outpatient (BNV) | payer OTHER, SELFPAY | PROVIDERS: PCP Internal Medicine; Visit Provider Radiology Diagnostic Radiology | DX: E28.39 Other primary ovarian failure (principal) | CPT/HCPCS: 77080 ==

== ENCOUNTER 2024-12-24 13:31 | Outpatient (REF) | payer OTHER, SELFPAY | END 2024-12-24 13:32 | disposition home or self-care (01) | LOC: HO.MAMMO 13:31 | PROVIDERS: PCP Internal Medicine; Visit Provider Internal Medicine | DX: Z13.820 Encounter for screening for osteoporosis (principal); Z78.0 Asymptomatic menopausal state | CPT/HCPCS: 77080 ==

== ENCOUNTER → 2025-01-07 15:41 | Outpatient (BNV) | payer OTHER, SELFPAY | PROVIDERS: PCP Internal Medicine; Visit Provider Internal Medicine | DX: R92.343 Mammographic extreme density, bilateral breasts (principal); R92.8 Other abnormal and inconclusive findings on diagnostic imaging of breast | CPT/HCPCS: 77049 ==

== ENCOUNTER 2025-01-07 15:42 | Outpatient (REF) | payer OTHER, SELFPAY ==
[2025-01-07] MEDS: gadobutroL 7.5 ML VIAL IVPUSH (17:11)
== END 2025-01-07 15:43 | disposition home or self-care (01) ==
LOC: HO.MRI 15:42
PROVIDERS: PCP Internal Medicine; Visit Provider Surgery
DX: R92.30 Dense breasts, unspecified (principal); R92.8 Other abnormal and inconclusive findings on diagnostic imaging of breast
CPT/HCPCS: 77049; A9585

== ENCOUNTER 2025-10-15 12:50 | Outpatient (AMB) | payer OTHER, SELFPAY ==
[2025-10-15 12:54] VITALS: BP 120/64; PULSE 80; O2SAT 98; BMI 22.5
--- NOTE | 2025-10-15 12:54 | A.OFFPC_ITS ---
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 Accompanied by: Self / Same As Patient Allergies No Known Allergies Allergy (Verified 10/15/25 12:55) Tobacco use date assessed: 10/15/25 Dental Screening Dental Screen Date: 10/15/25 Did you have a dental visit in the last 12 months?: Yes Did you have a dental problem in the last 6 months where you did not have access to dental care?: No Was dental information given to patient?: Patient has dentist HPI pe HPI Details Patient comes in today for her annual physical examination States that she feels okay Reports (+) on and off pain over the left side of her neck - states that this has been going on for several months now and seems to be occurring on and off but never clears up or resolves completely She does not recall any recent injury or trauma to her neck or left shoulder although she admits to sleeping often on her left side at night when questioned about her sleeping habits and position of preference She denies any headaches or dizziness Denies any chest pains, no SOB No nausea/vomiting, no abdominal pain No change in bowel habits noted Denies any acute urinary symptoms She had her annual mammogram done about a year ago and was sent for breast MRI due to dense breast tissues Her MRI was done back in January 2025 and it showed (+) asymmetric left nipple enhancement in comparison to the right which may be related to artifact but close attention on follow-up recommended. There is also a 4 mm enhancing foci in the upper central right breast that is probably benign - recommend six-month follow-up MRI for further evaluation of stability A repeat MRI was ordered by Dr. Chamberlain back in July 2025 but patient has not yet had it scheduled States that she just got back from a trip to [place] so there is a possibility that the MRI department could not reach her while she was out of the [place] She had her yearly gynecology exam and pap smear done last September 2024 (pap was negative) and she has not yet been seen since for follow up She also had her colonoscopy done last year and will due for repeat colonoscopy in 2028 (5 year recall) [facility] Medical History (Updated 10/15/25 @ 15:10 by John Lilly MD) Osteopenia Breast pain Allergic rhinitis GERD without esophagitis Elevated liver enzymes Vitamin D deficiency Breast lump in upper outer quadrant Fibroadenoma Surgical History History of colonoscopy S/P breast biopsy, left (~05/12/15) H/O removal of cyst Family History Father No problems noted. Mother No problems noted. Social History Housing: House Alcohol intake: never Patient Tobacco Use Status: Never used Tobacco Second Hand Smoke Exposure: No service: No Current occupational status: employed Cognitive needs: No Hearing needs: No Vision needs: No Female Reproductive History Menstrual Age of Menarche: 15 Questionnaire PHQ-9 Over the last 2 weeks, how often have you been bothered by any of the following problems? 1. Little interest or pleasure in doing things: not at all 2. Feeling down, depressed, or hopeless: not at all 3. Trouble falling or staying asleep, or sleeping too much: not at all 4. Feeling tired or having little energy: not at all 5. Poor appetite or overeating: not at all 6. Feeling bad about yourself - or that you are a failure or have let yourself or your family down: not at all 7. Trouble concentrating on things, such as reading the newspaper or watching television: not at all 8. Moving or speaking so slowly that other people could have noticed. Or the opposite - being so fidgety or restless that you have been moving around a lot more than usual: not at all 9. Thoughts that you would be better off or of hurting yourself in some way: not at all Total score: 0 Depression Screening Interpretation: Negative Depression Screening Done: Yes 36972 - PHQ-9 Billing: Yes Source: Developed by Drs. Hai Marcum, Unique Adam, Erick Horner and colleagues, with an educational tg from [employer]. Thrive Questionnaire Date Thrive assessed: 10/15/25 I am a: Patient What is your living situation today?: I have a steady place to live Within the past 12 months, did the food you bought not last and you didn't have the money to get more?: Never true Within the past 12 months, did you worry whether your food would run out before you got money to buy more?: I choose not to answer this question Do you have trouble paying for medicines?: I choose not to answer this question Do you have trouble getting transportation to medical appointments?: I choose not to answer this question Do you have trouble paying your heating and electricity bill?: No Do you have trouble taking care of your child, family member or friend?: No Do you have trouble with day-to-day activities such as bathing, preparing meals, shopping, managing finances, etc.?: No Are you currently unemployed and looking for a job?: No Are you interested in more education?: Yes Please select the resources that you would like help with: None Currently or been in a relationship where the following occur: I choose not to answer THRIVE Score: 0 AUDIT C Alcohol Use Questionnaire (AUDIT-C) 1. How often do you have a drink containing alcohol?: Never 3. How often do you have six or more drinks on one occasion?: Never Total Score: 0 Score Reviewed/Action Taken: Yes YOVANA-7 AMB Questionnaire YOVANA-7 Date YOVANA - 7 assessed: 10/15/25 Feeling nervous, anxious, or on edge: 0 = Not at all Not being able to stop or control worryin = Not at all Worrying too much about different things: 0 = Not at all Trouble relaxin = Not at all Being so restless that it is hard to sit still: 0 = Not at all Becoming easily annoyed or irritable: 0 = Not at all Feeling afraid as if something awful might happen: 0 = Not at all Total YOVANA-7 score (0-4 normal; 5-9 mild; 10-14 moderate; 15-21 severe): 0 Source: Developed by Drs. Hai Marcum, Unique Adam, Erick Horner and colleagues, with an educational tg from [employer]. Review of Systems Const Denies chills, Denies fatigue, Denies fever(s), Denies headache(s) and Denies malaise Eyes Denies blurry vision, Denies change in vision, Denies irritation and Denies itchy eyes ENT Denies dysphagia, Denies dizziness, Denies otalgia, Denies headache(s), Denies nasal congestion, Reports neck pain (on and off over the left side of the neck), Denies odynophagia, Denies sinus pain and Denies sore throat Card Denies chest pain, Denies rapid heart rate, Denies irregular heart rhythm, Denies palpitations and Denies dyspnea Resp Denies chest congestion, Denies cough, Denies dyspnea and Denies wheezing GI Denies abdominal pain, Denies bloating, Denies constipation, Denies dysphagia, Denies heartburn, Denies diarrhea, Denies nausea, Denies odynophagia and Denies vomiting Denies hematuria, Denies difficulty voiding, Denies dysuria, Denies urinary incontinence and Denies urinary urgency Musc Denies back pain, Denies arthralgias, Denies joint swelling, Denies muscle weakness and Reports neck pain (on and off over the left side of the neck) Skin/Breast Denies breast pain, Denies breast mass, Denies change in pigmentation, Denies lesions, Denies rash and Denies unusual bruising Neuro Denies dizziness, Denies headache(s) and Denies paresthesias Psych Denies anxiety and Denies depression Endo Denies fatigue and Denies palpitations Benson/Lymph Denies easy bruising Aller/Immun Denies itchy eyes and Denies wheezing Physical exam (Primary Care) Vital Signs: Last Vital Signs Pulse 80 10/15/25 12:54 BP 120/64 10/15/25 12:54 Pulse Ox 98 10/15/25 12:54 Oxygen Delivery Method Room Air 10/15/25 12:54 BMI result Body Mass Index 22.5 Tobacco/Smoking Status: Tobacco use Status Tobacco use date assessed 10/15/25 10/15/25 12:57 Patient Tobacco Use Status Never used Tobacco 10/15/25 12:57 PHQ-9: PHQ-9 Score PHQ-9: Total score 0 10/15/25 13:55 Depression Screening Interpretation: Negative Thrive Assessment: Date of Thrive Assessment Date Thrive assessed 10/15/25 10/15/25 12:57 Currently or been in a relationship where the following occur: I choose not to answer Const General: no acute distress, alert and awake Orientation/consciousness: patient oriented x3 HENMT Head: Yes normocephalic and Yes atraumatic Ears: external ears normal, TM's normal bilaterally and EAC's normal General nose exam: No nasal discharge present Face and sinus: Yes normal facial exam and Yes sinuses nontender Teeth and gingiva: dentition normal Throat: Yes posterior oropharynx normal and Yes tonsils normal (no TP congestion) Eyes Eyelids: Yes eyelids normal Conjunctivae: conjunctivae normal Pupils: Equal, round and reactive pupils present EOM: EOMs intact bilaterally Neck Other: (+) mild tenderness on palpation over the left sternocleidomastoid muscle anteriorly in between the neck and the left shoulder Neck: Yes supple and No lymphadenopathy Thyroid: Thyroid normal Resp Auscultation: clear to auscultation bilaterally, no rales and no wheezes Cardio Rate: regular rate Rhythm: regular rhythm Heart sounds: no murmurs GI Palpation (GI): Soft to palpation, nontender and No hepatosplenomegaly present Auscultation: normal bowel sounds General: Yes no CVA tenderness Back/Spine/Pelvis Back: no CVA tenderness Thoracic/Lumbar Spine: thoracic and lumbar spine normal to inspection Skin Lesions: no lesions Rashes: no rashes Neuro General: patient oriented x3, moves all extremities, no focal motor deficits and CN's II-XI intact bilaterally Cranial nerves: Yes Equal, round and reactive pupils present Cognition (Neuro): normal cognition Gait exam (Neuro): Normal gait present Extrem General: Yes no clubbing, cyanosis or edema Coding Level of Care Code Est Pt Prev Care 40-64y(37098) Diagnoses Annual physical exam Z00.00 Vitamin D deficiency E55.9 Osteopenia of lumbar spine M85.88 Osteopenia location: lumbar spine GERD without esophagitis K21.9 Elevated LFTs R79.89 Extremely dense tissue of both breasts on mammography R92.343 Mammographic dense breast tissue type: extremely dense Laterality: bilateral Strain of cervical portion of left trapezius muscle S16.1XXA Additional Codes PHQ-9 - 29790 - PHQ-9 Billing: Yes ([id number]) Assessment & Plan Assessment & Plan (1) Annual physical exam: Code(s): Z00.00 - Encounter for general adult medical examination without abnormal findings Category: Medical Plan: Check labs SHE to complete her annual exam today She had her annual mammogram done last year and was sent for breast MRI due to dense breast tissues MRI was done back in January 2025 and it showed (+) asymmetric left nipple enhancement in comparison to the right which may be related to artifact but close attention on follow-up recommended. There is also a 4 mm enhancing foci in the upper central right breast that is probably benign - recommend six-month follow-up MRI for further evaluation of stability A repeat MRI was ordered by Dr. Chamberlain back in July 2025 but patient has not yet had it scheduled States that she just got back from a trip to [place] so there is a possibility that the MRI department could not reach her while she was out of the country She had her yearly gynecology exam and pap smear done last September 2024 (pap was negative) and she has not yet been seen since for follow up She also had her colonoscopy done last year and will due for repeat colonoscopy in 2028 (5 year recall) (2) Vitamin D deficiency: Code(s): E55.9 - Vitamin D deficiency, unspecified Category: Medical Plan: Continue Vitamin D3 2000 units QD Will recheck her vitamin-D level for follow-up (3) Osteopenia: Code(s): M85.80 - Other specified disorders of bone density and structure, unspecified site Category: Medical Qualifiers: Osteopenia location: lumbar spine Qualified Code(s): M85.88 - Other specified disorders of bone density and structure, other site Plan: Her BMD done back in December 2024 revealed (+) osteopenia, with the bone mineral density of her lumbar spine at 1.015 with a T-score of -1.4, and a Z- score of -0.2 Her BMD in the left femoral neck and left hip were normal She is again encouraged to stay active and exercise regularly Continue VitamiN D3 2000 units QD and she is also encouraged to start taking oral Calcium supplements of at least 1000 mg QD Will continue to monitor her BMD regularly every 2 to 3 years (4) GERD without esophagitis: Code(s): K21.9 - Gastro-esophageal reflux disease without esophagitis Category: Medical Plan: Dietary restrictions reinforced (5) Elevated LFTs: Code(s): R79.89 - Other specified abnormal findings of blood chemistry Category: Medical Plan: Patient is cautioned that her LFTs were slightly elevated on her labs done last year Discussed that this could be related to her weight as patient states that she does not drink alcohol; she also denies taking any OTC supplements or herbal meds Will recheck her LFTs and labs SHE for follow up and will consider sending her for abdominal US if her LFTs continue to stay high (6) Dense breast tissue on mammogram: Code(s): R92.30 - Dense breasts, unspecified Category: Medical Qualifiers: Mammographic dense breast tissue type: extremely dense Laterality: bilateral Qualified Code(s): R92.343 - Mammographic extreme density, bilateral breasts Plan: Her annual mammogram last year revealed (+) dense breast tissues and she was sent for breast MRI for further evaluation Her breast MRI done back in January 2025 showed (+) asymmetric left nipple enhancement in comparison to the right which may be related to artifact but close attention on follow-up recommended. There is also a 4 mm enhancing foci in the upper central right breast that is probably benign - recommend six-month follow-up MRI for further evaluation of stability A repeat MRI was ordered by Dr. Chamberlain back in July 2025 but patient has not yet had it scheduled States that she just got back from a trip to [place] so there is a possibility that the MRI department could not reach her while she was out of the country Have advised patient to have one of her family members/children who speak Eritrean fluently help her call the MRI department at [facility] and get this scheduled SHE (7) Strain of cervical portion of left trapezius muscle: Code(s): S16.1XXA - Strain of muscle, fascia and tendon at neck level, initial encounter Category: Medical Plan: Have advised patient that her habit of sleeping on her left side often likely brought this about - she likely has muscular strain of the left/neck shoulder area, based on her exam Have advised her to try to shift to a different position every now and then whe she is sleeping at night whenever she can Have reassured her that her symptoms are benign and mostly due to a strain of the muscles on the left side of her neck She can try applying some warm compress to the painful areas PRN for symptomatic relief; she can also use any of the OTC pain/muscle patches like Salonpas, BenGay or Aspercreme PRN Plan To return in 1 year for her next annual physical examination Orders: Orders Comprehensive [place]. Panel Fast Today E78.00 - Pure hypercholesterolemia, unspecified, Z00.00 - Encounter for general adult medical examination without abnormal findings Lipid Panel Today E78.00 - Pure hypercholesterolemia, unspecified, Z00.00 - Encounter for general adult medical examination without abnormal findings UA CC w/rflx Micro + Cult Today R30.0 - Dysuria, Z00.00 - Encounter for general adult medical examination without abnormal findings TSH reflex Free T4 Today E78.00 - Pure hypercholesterolemia, unspecified, Z00.00 - Encounter for general adult medical examination without abnormal findings Complete Blood Count Auto Diff Today D64.9 - Anemia, unspecified, Z00.00 - Encounter for general adult medical examination without abnormal findings Vitamin D 25-OH Total Today E55.9 - Vitamin D deficiency, unspecified, Z00.00 - Encounter for general adult medical examination without abnormal findings Gamma Glutamyl Transpeptidase Today R79.89 - Other specified abnormal findings of blood chemistry
== END 2025-10-15 13:46 | disposition home or self-care (01) ==
LOC: HO.HMCH 12:51
PROVIDERS: PCP Internal Medicine; Visit Provider Internal Medicine
DX: Z00.00 Encounter for general adult medical examination without abnormal findings (principal); E55.9 Vitamin D deficiency, unspecified; M85.88 Other specified disorders of bone density and structure, other site; K21.9 Gastro-esophageal reflux disease without esophagitis; R79.89 Other specified abnormal findings of blood chemistry; R92.343 Mammographic extreme density, bilateral breasts; S16.1XXA Strain of muscle, fascia and tendon at neck level, initial encounter

== ENCOUNTER → 2025-10-15 12:50 | Outpatient (BNVA) | payer OTHER, SELFPAY | PROVIDERS: PCP Internal Medicine; Visit Provider Internal Medicine | DX: Z00.00 Encounter for general adult medical examination without abnormal findings (principal); S16.1XXA Strain of muscle, fascia and tendon at neck level, initial encounter; E55.9 Vitamin D deficiency, unspecified; M85.88 Other specified disorders of bone density and structure, other site; K21.9 Gastro-esophageal reflux disease without esophagitis; R79.89 Other specified abnormal findings of blood chemistry; R92.343 Mammographic extreme density, bilateral breasts | CPT/HCPCS: 96127; 99396 ==

== ENCOUNTER 2025-10-21 09:22 | Outpatient (REF) | payer OTHER, SELFPAY ==
[2025-10-21 09:45] LABS: MANUAL DIFF FLAG NO
[2025-10-21 10:22] LABS: Hematocrit 42.8 % (37.0-47.0); Hemoglobin 13.9 g/dl (12.0-16.0); Imm Gran Abs Auto 0.01 X10*3/uL (0.00-0.03); Imm Gran Pct Auto 0.2 % (0.0-0.4); Lymphocytes Absolute Auto 1.5 X10*3/uL (1.2-4.9); Mean Corpuscular HGB Conc 32.5 g/dl (31.0-35.0); Mean Corpuscular Hemoglobin 29.1 pg (27.0-33.0); Mean Corpuscular Volume 89.5 fL (80.0-98.0); NRBC Abs Auto 0.000 X10*3/uL (0.0-0.012); NRBC Pct Auto 0.0 /100WBC (0.0-0.2); Platelet Count 214 X10*3/uL (160-400); Red Blood Count 4.78 X10*6/uL (4.20-5.50); White Blood Count 4.5 X10*3/uL (4.8-10.8)
[2025-10-21 10:44] LABS: Appearance Urine Cloudy; Glucose Urine UA Negative (Negative); PH 7.0 (5.0-9.0); Specific Gravity - Urine 1.010 (1.005-1.025)
[2025-10-21 11:49] LABS: Anion Gap 11 (12-20)
[2025-10-21 11:53] LABS: Alanine Aminotransferase 84 U/L (0-31); Albumin Level 4.5 g/dL (3.5-5.0); Alkaline Phosphatase 95 U/L (39-117); Aspartate Amino Transferase 40 U/L (5-31); Blood Urea Nitrogen 15 mg/dL (9-16); Calcium 9.3 mg/dL (8.4-10.2); Carbon Dioxide 27 mmol/L (22-29); Chloride 108 mmol/L (96-108); Cholesterol 203 mg/dL (<200); Estimated Glomerular Filt Rate > 60; Gamma Glutamyl Transpeptidase 82 U/L (7-33); HDL Cholesterol 55 mg/dL (>40); Potassium 4.0 mmol/L (3.3-5.1); Sodium 142 mmol/L (135-145); Total Protein 7.1 g/dL (6.5-8.0); Triglycerides 109 mg/dL (<150)
== END 2025-10-21 09:23 | disposition home or self-care (01) ==
LOC: HO.LAB 09:22
PROVIDERS: PCP Internal Medicine; Visit Provider Internal Medicine
DX: Z00.00 Encounter for general adult medical examination without abnormal findings (principal); E78.00 Pure hypercholesterolemia, unspecified; E55.9 Vitamin D deficiency, unspecified; D64.9 Anemia, unspecified; R79.89 Other specified abnormal findings of blood chemistry; R30.0 Dysuria
CPT/HCPCS: 36415; 80053; 80061; 81003; 82306; 82977; 84443; 85025